=== PATIENT | male | born 1970 | race Hispanic/Latino ===

== ENCOUNTER 2018-03-12 09:27 | Emergency (ER) | payer BC, OTHER ==
--- NOTE | 2018-03-12 11:02 | ER ---
Nurse's Notes [facility] Name: Chip Maria Age: 47 yrs Sex: Male : 1970 Arrival Date: 03/12/2018 Time: 09:32 Bed 20 Private MD: Dick Garcia R Diagnosis: Cough;Acute upper respiratory infection, unspecified Presentation: 03/12 09:35 Presenting complaint: Patient states: has chills, also has cough with chest tightness, iw sometimes has phlegm. Transition of care: patient was not received from another setting of care. Onset of symptoms was March 09, 2018. Risk Assessment: Do you want to hurt yourself or someone else? Patient reports no desire to harm self or others. Initial Sepsis Screen: Does the patient meet any 2 criteria? No. Patient's initial sepsis screen is negative. Does the patient have a suspected source of infection? No. Patient's initial sepsis screen is negative. Care prior to arrival: None. 09:35 Method Of Arrival: Ambulatory iw 09:35 Acuity: GIOVANI 4 iw Historical: - Allergies: 09:36 No Known Allergies; iw - Home Meds: 09:36 None [Active]; iw - PMHx: 09:36 None; iw - PSHx: 09:36 None; iw - Social history:: Smoking status: . - Ebola Screening: : Patient negative for fever greater than or equal to 101.5 degrees Fahrenheit, and additional compatible Ebola Virus Disease symptoms Patient denies exposure to infectious person Patient denies travel to an Ebola-affected area in the 21 days before illness onset No symptoms or risks identified at this time. Screenin:40 Abuse screen: Denies threats or abuse. Denies injuries from another. Nutritional sv screening: No deficits noted. Tuberculosis screening: No symptoms or risk factors identified. Fall Risk None identified. Assessment: 09:40 General: Appears in no apparent distress. comfortable, Behavior is calm, cooperative, sv appropriate for age. Pain: Complains of pain in chest Pain currently is 2 out of 10 on a pain scale. Quality of pain is described as tightness with coughing. Neuro: Level of Consciousness is awake, alert, obeys commands, Oriented to person, place, time, situation, Moves all extremities. Full function Gait is steady, Speech is normal. Respiratory: Reports cough that is productive, intermittently Respiratory effort is even, unlabored, Respiratory pattern is regular, symmetrical. Derm: Skin is normal. 11:15 Reassessment: Patient appears in no apparent distress at this time. No changes from sv previously documented assessment. Patient and/or family updated on plan of care and expected duration. Pain level reassessed. Patient is alert, oriented x 3, equal unlabored respirations, skin warm/dry/pink. Vital Signs: 09:36 BP 112 / 95; Pulse 70; Resp 16; Temp 97.4; Pulse Ox 98% on R/A; iw ED Course: 09:32 Patient arrived in ED. mr 09:32 Dick aGrcia MD is Private Physician. mr 09:36 Triage completed. iw 09:37 Arm band placed on. iw 09:40 Patient has correct armband on for positive identification. Bed in low position. Call sv light in reach. Door closed. Head of bed elevated. 09:59 Marisela Rojas RN is Primary Nurse. sv 10:05 Bakari Lucero PA is PHCP. jr8 10:05 Alfredo Armstrong MD is Attending Physician. jr8 10:21 EKG done, by dietary tech. reviewed by Bakari CARDOZO. at1 10:41 X-ray completed. Portable x-ray completed in exam room. Patient tolerated procedure ls3 well. 10:43 Awaiting radiology results. sv 10:44 XRAY Chest (1 view) In Process Unspecified. EDMS 11:01 Dick Garcia MD is Referral Physician. jr8 11:15 No provider procedures requiring assistance completed. Patient did not have IV access sv during this emergency room visit. Administered Medications: No medications were administered Outcome: 11:01 Discharge ordered by . jr8 11:15 Discharged to home ambulatory, with family. sv 11:15 Condition: stable 11:15 Discharge instructions given to patient, Instructed on discharge instructions, follow up and referral plans. medication usage, Demonstrated understanding of instructions, follow-up care, medications, Prescriptions given X 3. 11:15 Patient left the ED. sv Signatures: Dispatcher [employer] EDMT Marisela Rojas RN RN Khan, Mi kim Mihaela Garcia RN RN iw Bakari Lucero PA PA jr8 Hannah Dior, photo equipment technician EKG Tat1 Mika Cash ls3
--- NOTE | 2018-03-12 11:02 | EDPHYS ---
Physician Documentation [facility] Name: Chip Maria Age: 47 yrs Sex: Male : 1970 Arrival Date: 03/12/2018 Time: 09:32 Bed 20 Private MD: Dick Garcia R ED Physician Alfredo Armstrong HPI: 03/12 10:38 This 47 yrs old Male presents to ER via Ambulatory with complaints of Flu jr8 Symptoms. 10:38 Patient presents with complaints of chest congestion, cough, chest pain, body aches, jr8 chills, fevers, n/v/d, sore throat, and rhinorrhea for the past three days. Severity of symptoms: At their worst the symptoms were mild in the emergency department the symptoms are unchanged. It is unknown whether or not the patient has had similar symptoms in the past. The patient has not recently seen a physician. Historical: - Allergies: 09:36 No Known Allergies; iw - Home Meds: 09:36 None [Active]; iw - PMHx: 09:36 None; iw - PSHx: 09:36 None; iw - Social history:: Smoking status: . - Ebola Screening: : Patient negative for fever greater than or equal to 101.5 degrees Fahrenheit, and additional compatible Ebola Virus Disease symptoms Patient denies exposure to infectious person Patient denies travel to an Ebola-affected area in the 21 days before illness onset No symptoms or risks identified at this time. ROS: 10:38 Eyes: Negative for injury, pain, redness, and discharge, Neck: Negative for injury, jr8 pain, and swelling, Back: Negative for injury and pain, MS/Extremity: Negative for injury and deformity, Skin: Negative for injury, rash, and discoloration, Neuro: Negative for headache, weakness, numbness, tingling, and seizure. 10:38 Constitutional: Positive for body aches, chills, fever. 10:38 ENT: Positive for rhinorrhea, sinus congestion, sore throat. 10:38 Cardiovascular: Positive for chest pain, with cough, Negative for edema, orthopnea, palpitations, paroxysmal nocturnal dyspnea. 10:38 Respiratory: Positive for cough, with clear sputum, Negative for dyspnea on exertion, shortness of breath, wheezing. 10:38 Abdomen/GI: Positive for nausea, vomiting, and diarrhea. Exam: 10:38 Eyes: Pupils equal round and reactive to light, extra-ocular motions intact. Lids and jr8 lashes normal. Conjunctiva and sclera are non-icteric and not injected. Cornea within normal limits. Periorbital areas with no swelling, redness, or edema. ENT: Nares patent. No nasal discharge, no septal abnormalities noted. Mild enlargment to turbinates bilaterally. Tympanic membranes are normal and external auditory canals are clear. Oropharynx with no redness, swelling, or masses, exudates, or evidence of obstruction, uvula midline. Mucous membranes moist. Neck: Trachea midline, no thyromegaly or masses palpated, and no cervical lymphadenopathy. Supple, full range of motion without nuchal rigidity, or vertebral point tenderness. No Meningismus. Cardiovascular: Regular rate and rhythm with a normal S1 and S2. No gallops, murmurs, or rubs. Normal PMI, no JVD. No pulse deficits. Respiratory: Lungs have equal breath sounds bilaterally, clear to auscultation and percussion. No rales, rhonchi or wheezes noted. No increased work of breathing, no retractions or nasal flaring. Abdomen/GI: Soft, non-tender, with normal bowel sounds. No distension or tympany. No guarding or rebound. No evidence of tenderness throughout. Back: No spinal tenderness. No costovertebral tenderness. Full range of motion. Skin: Warm, dry with normal turgor. Normal color with no rashes, no lesions, and no evidence of cellulitis. MS/ Extremity: Pulses equal, no cyanosis. Neurovascular intact. Full, normal range of motion. Neuro: Awake and alert, GCS 15, oriented to person, place, time, and situation. Cranial nerves II-XII grossly intact. Motor strength 5/5 in all extremities. Sensory grossly intact. Cerebellar exam normal. Normal gait. 10:40 ECG was reviewed by the Attending Physician. jr8 Vital Signs: 09:36 BP 112 / 95; Pulse 70; Resp 16; Temp 97.4; Pulse Ox 98% on R/A; iw MDM: 10:05 Patient medically screened. jr8 10:38 Data reviewed: vital signs, nurses notes, EKG, radiologic studies, plain films. Data jr8 interpreted: Pulse oximetry: on room air is 98 %. Interpretation: normal. Counseling: I had a detailed discussion with the patient and/or guardian regarding: the historical points, exam findings, and any diagnostic results supporting the discharge/admit diagnosis, radiology results, the need for outpatient follow up, a family practitioner, to return to the emergency department if symptoms worsen or persist or if there are any questions or concerns that arise at home. 03/12 10:13 Order name: XRAY Chest (1 view) jr8 03/12 10:13 Order name: EKG; Complete Time: jr8 03/12 10:13 Order name: EKG - Nurse/Tech; Complete Time: : jr8 EC:40 Rate is 69 beats/min. Rhythm is regular, Normal Sinus Rhythm. QRS [place] is Normal. [place] jr8 interval is normal at 164 msec. QRS interval is normal at 96 msec. QT interval is normal at 407 msec. No Q waves. T waves are Normal. No ST changes noted. Clinical impression: Normal ECG. Interpreted by me. Reviewed by me. Administered Medications: No medications were administered Disposition: 18:50 Co-signature as Attending Physician, Alfredo Armstrong MD I agree with the assessment and kdr plan of care. Disposition: 03/12/18 11:01 Discharged to Home. Impression: Cough, Acute upper respiratory infection, unspecified. - Condition is Stable. - Discharge Instructions: Upper Respiratory Infection, Adult, Cough, Adult. - Prescriptions for Prednisone 20 mg Oral Tablet - take 1 tablet by ORAL route once daily for 5 days; 5 tablet. Tessalon Perles 100 mg Oral Capsule - take 1 capsule by ORAL route every 8 hours As needed; 15 capsule. Guaifenesin AC 10- 100 mg/5 mL Oral Liquid - take 10 milliliter by ORAL route every 4 hours As needed; 240 milliliter. - Medication Reconciliation Form, Thank You Letter, Antibiotic Education, Prescription Opioid Use form. - Follow up: Dick Garcia MD; When: 5 - 6 days; Reason: Recheck today's complaints, Continuance of care, Re-evaluation by your physician. - Problem is new. - Symptoms have improved. Signatures: Dispatcher [employer] EDMS Marisela Rojas RN RN sv Rittger, Kevin, MD MD [facility] Mihaela Garcia RN RN iw Roszak, Josh, PA PA jr8 Corrections: (The following items were deleted from the chart) 11:15 11:01 03/12/2018 11:01 Discharged to Home. Impression: Cough; Acute upper respiratory sv infection, unspecified. Condition is Stable. Forms are Medication Reconciliation Form, Thank You Letter, Antibiotic Education, Prescription Opioid Use. Follow up: Dick Garcia; When: 5 - 6 days; Reason: Recheck today's complaints, Continuance of care, Re-evaluation by your physician. Problem is new. Symptoms have improved. jr8
--- NOTE | 2018-03-12 11:17 | RAD REPORT ---
EXAM DESCRIPTION: RAD - Chest Single View - 03/12/2018 10:43 am CLINICAL HISTORY: Cough, chest tightness COMPARISON: August 15, 2008 TECHNIQUE: AP portable chest image was obtained 1035 hours . FINDINGS: Lung volumes are low. No focal lung parenchymal process. Heart and vasculature are normal. No measurable pleural effusion and no pneumothorax. No acute bony abnormality seen. No acute aortic findings suspected. IMPRESSION: No acute cardiopulmonary process. No suspicious interval change.
--- NOTE | 2018-03-12 14:35 | EKG ---
Test Date: 2018-03-12 Test Time: 10:17:32 Oil Rig Driller: CHEIKH MEASUREMENT RESULTS: Intervals: Rate: 69 NV: 164 QRSD: 96 QT: 380 QTc: 407 Jbphh: P: 35 NV: 164 QRS: 18 T: 53 INTERPRETIVE STATEMENTS: Normal sinus rhythm Normal ECG Compared to ECG 08/15/2008 15:07:13 No significant changes Electronically Signed On 03-12-18 14:33:58 MEDIA ANALYST by Kaiden Grossman
== END 2018-03-12 11:15 | disposition home or self-care (01) ==
LOC: ER 09:27
DX: J06.9 Acute upper respiratory infection, unspecified (principal)
CPT/HCPCS: 71045; 93005; 99283

== ENCOUNTER 2018-07-27 14:43 | Emergency (ER) | payer BC, OTHER ==
[2018-07-27] MEDS ORDERED: KETOROLAC 30 MG/ML INJ ONE (16:35)
[2018-07-27] MEDS ORDERED: CYCLOBENZAPRINE 10 MG TAB ONE (16:35)
--- NOTE | 2018-07-27 16:54 | EDPHYS ---
Physician Documentation [facility] Name: Chip Maria Age: 48 yrs Sex: Male : 1970 Arrival Date: 07/27/2018 Time: 14:46 Bed 10 Private MD: Dick Garcia R ED Physician Jose Flores HPI: 07/27 16:03 This 48 yrs old Male presents to ER via Ambulatory with complaints of Back pm1 Pain. 16:03 The patient presents with pain that is acute. The symptoms are located in the left low pm1 back. Onset: The symptoms/episode began/occurred 2 day(s) ago. The pain does not radiate. Associated signs and symptoms: Pertinent negatives: abdominal pain, chest pain, dysuria, fever, headache, hematuria, numbness, tingling, urinary retention. The problem was sustained exercising. Patient was walking on the treadmill 2 days ago and started getting pain to left lower back. Modifying factors: The patient symptoms are alleviated by remaining still, rest, the patient symptoms are aggravated by bending, twisting and bending back. Severity of symptoms: in the emergency department the symptoms are unchanged. The patient has not experienced similar symptoms in the past. The patient has not recently seen a physician, the patient's primary care provider is Dr. Garcia. Historical: - Allergies: 14:54 No Known Allergies; ss - PMHx: 14:54 Diabetes - NIDDM; ss - PSHx: 14:54 None; ss - Immunization history:: Adult Immunizations up to date. - Social history:: Smoking status: Patient/guardian denies using tobacco. - Ebola Screening: : Patient denies exposure to infectious person Patient denies travel to an Ebola-affected area in the 21 days before illness onset. ROS: 16:03 Constitutional: Negative for fever, chills, and weight loss, Eyes: Negative for injury, pm1 pain, redness, and discharge, ENT: Negative for injury, pain, and discharge, Neck: Negative for injury, pain, and swelling, Cardiovascular: Negative for chest pain, palpitations, and edema, Respiratory: Negative for shortness of breath, cough, wheezing, and pleuritic chest pain, Abdomen/GI: Negative for abdominal pain, nausea, vomiting, diarrhea, and constipation. 16:03 : Negative for injury, bleeding, discharge, and swelling, MS/Extremity: Negative for injury and deformity, Skin: Negative for injury, rash, and discoloration, Neuro: Negative for headache, weakness, numbness, tingling, and seizure. 16:03 Back: Positive for pain with movement, of the left low back, Negative for radiated pain. Exam: 16:03 Constitutional: This is a well developed, well nourished patient who is awake, alert, pm1 and in no acute distress. Head/Face: Normocephalic, atraumatic. Eyes: Pupils equal round and reactive to light, extra-ocular motions intact. Lids and lashes normal. Conjunctiva and sclera are non-icteric and not injected. Cornea within normal limits. Periorbital areas with no swelling, redness, or edema. ENT: Nares patent. No nasal discharge, no septal abnormalities noted. Tympanic membranes are normal and external auditory canals are clear. Oropharynx with no redness, swelling, or masses, exudates, or evidence of obstruction, uvula midline. Mucous membranes moist. Neck: Trachea midline, no thyromegaly or masses palpated, and no cervical lymphadenopathy. Supple, full range of motion without nuchal rigidity, or vertebral point tenderness. No Meningismus. Chest/axilla: Normal chest wall appearance and motion. Nontender with no deformity. No lesions are appreciated. Cardiovascular: Regular rate and rhythm with a normal S1 and S2. No gallops, murmurs, or rubs. Normal PMI, no JVD. No pulse deficits. Respiratory: Lungs have equal breath sounds bilaterally, clear to auscultation and percussion. No rales, rhonchi or wheezes noted. No increased work of breathing, no retractions or nasal flaring. Abdomen/GI: Soft, non-tender, with normal bowel sounds. No distension or tympany. No guarding or rebound. No evidence of tenderness throughout. 16:03 Skin: Warm, dry with normal turgor. Normal color with no rashes, no lesions, and no evidence of cellulitis. MS/ Extremity: Pulses equal, no cyanosis. Neurovascular intact. Full, normal range of motion. 16:03 Back: vertebral tenderness, is not appreciated, muscle spasm, is appreciated in the left low back. 16:03 Neuro: Orientation: is normal, Motor: is normal, moves all fours, Sensation: is normal, no obvious gross deficits, Gait: is steady, at a normal pace, without difficulty. Vital Signs: 14:54 BP 132 / 85; Pulse 76; Resp 18; Temp 97.3(TE); Pulse Ox 97% on R/A; Weight 89.81 kg; ss Pain 04/23; MDM: 15:51 Patient medically screened. pm1 16:45 ED course: Negative for blood in urine. CT stone protocol not indicated. Patient's pain pm1 improved to 04/23. 17:02 Data reviewed: vital signs. Data interpreted: Pulse oximetry: on room air is 97 %. pm1 Interpretation: normal. 07/27 16:47 Order name: Urine Dipstick--Ancillary (enter results) bd 07/27 16:03 Order name: Urine Dipstick-Ancillary (obtain specimen); Complete Time: 16:39 pm1 Administered Medications: 16:39 Drug: TORadol 60 mg Route: IM; Site: left gluteus; aj 17:22 Follow up: Response: No adverse reaction aj 16:39 Drug: Flexeril 10 mg Route: PO; aj1 17:22 Follow up: Response: No adverse reaction aj Disposition: 07/28 10:27 Co-signature as Attending Physician, Jose Flores MD. Disposition: 07/27/18 16:53 Discharged to Home. Impression: Low back pain, Strain of muscle, fascia and tendon of lower back. - Condition is Stable. - Discharge Instructions: Back Pain, Adult, Muscle Strain, Musculoskeletal Pain, Back Injury Prevention, [id number]. - Prescriptions for Cyclobenzaprine 10 mg Oral Tablet - take 1 tablet by ORAL route every 8 hours As needed; 30 tablet. Diclofenac Sodium 75 mg Oral Tablet Sustained Release - take 1 tablet by ORAL route 2 times per day; 30 tablet. - Medication Reconciliation Form, Thank You Letter, Antibiotic Education, Prescription Opioid Use form. - Follow up: Emergency Department; When: As needed; Reason: Worsening of condition. Follow up: Private Physician; When: 2 - 3 days; Reason: Recheck today's complaints, Continuance of care, Re-evaluation by your physician. - Problem is new. - Symptoms have improved. Signatures: Dispatcher [employer] EDFL Lauryn Lord RN RN aj1 Karrie Arrington RN RN ss Travis Bailey NP DOCTOR ASSISTANT pm1 Jose Flores MD MD gs Corrections: (The following items were deleted from the chart) 07/27 17:23 16:53 07/27/2018 16:53 Discharged to Home. Impression: Low back pain; Strain of muscle, aj1 fascia and tendon of lower back. Condition is Stable. Forms are Medication Reconciliation Form, Thank You Letter, Antibiotic Education, Prescription Opioid Use. Follow up: Emergency Department; When: As needed; Reason: Worsening of condition. Follow up: Private Physician; When: 2 - 3 days; Reason: Recheck today's complaints, Continuance of care, Re-evaluation by your physician. Problem is new. Symptoms have improved. pm1
--- NOTE | 2018-07-27 16:54 | ER ---
Nurse's Notes [facility] Name: Chip Maria Age: 48 yrs Sex: Male : 1970 Arrival Date: 07/27/2018 Time: 14:46 Bed 10 Private MD: Dick Garcia R Diagnosis: Low back pain;Strain of muscle, fascia and tendon of lower back Presentation: 07/27 14:52 Presenting complaint: Patient states: L low back pain that began 2 days ago. Denies ss injury. Pt reports he was exercising when it became aggravated. Pain is aggravated by increased movement/ repositioning. Transition of care: patient was not received from another setting of care. Onset of symptoms was July 25, 2018. Risk Assessment: Do you want to hurt yourself or someone else? Patient reports no desire to harm self or others. Initial Sepsis Screen: Does the patient meet any 2 criteria? No. Patient's initial sepsis screen is negative. Does the patient have a suspected source of infection? No. Patient's initial sepsis screen is negative. Care prior to arrival: None. 14:52 Method Of Arrival: Ambulatory ss 14:52 Acuity: GIOVANI 4 ss Historical: - Allergies: 14:54 No Known Allergies; ss - PMHx: 14:54 Diabetes - NIDDM; ss - PSHx: 14:54 None; ss - Immunization history:: Adult Immunizations up to date. - Social history:: Smoking status: Patient/guardian denies using tobacco. - Ebola Screening: : Patient denies exposure to infectious person Patient denies travel to an Ebola-affected area in the 21 days before illness onset. Screenin:48 Abuse screen: Denies threats or abuse. Denies injuries from another. Nutritional aj1 screening: No deficits noted. Tuberculosis screening: No symptoms or risk factors identified. 17:21 Fall Risk None identified. aj1 Assessment: 15:47 General: Appears in no apparent distress. comfortable, Behavior is calm, cooperative, aj1 appropriate for age. Pain: Complains of pain in left low back Pain currently is 1 out of 10 on a pain scale. Aggravated by repositioning. Neuro: No deficits noted. Level of Consciousness is awake, alert, obeys commands, Oriented to person, place, time, situation, Moves all extremities. Full function Gait is steady. Cardiovascular: Patient's skin is warm and dry. Respiratory: Airway is patent Respiratory effort is even, unlabored, Respiratory pattern is regular, symmetrical. GI: No signs and/or symptoms were reported involving the gastrointestinal system. : No signs and/or symptoms were reported regarding the genitourinary system. EENT: No signs and/or symptoms were reported regarding the EENT system. Derm: No signs and/or symptoms reported regarding the dermatologic system. Skin is pink, warm \T\ dry. normal. Musculoskeletal: Circulation, motion, and sensation intact. Range of motion: intact in all extremities. 16:48 Reassessment: Patient appears in no apparent distress at this time. No changes from aj1 previously documented assessment. Patient and/or family updated on plan of care and expected duration. Pain level reassessed. Patient is alert, oriented x 3, equal unlabored respirations, skin warm/dry/pink. 17:21 Reassessment: Patient appears in no apparent distress at this time. No changes from aj1 previously documented assessment. Patient and/or family updated on plan of care and expected duration. Pain level reassessed. Patient is alert, oriented x 3, equal unlabored respirations, skin warm/dry/pink. Vital Signs: 14:54 BP 132 / 85; Pulse 76; Resp 18; Temp 97.3(TE); Pulse Ox 97% on R/A; Weight 89.81 kg; ss Pain 1/10; ED Course: 14:46 Patient arrived in ED. dl4 14:46 Dick Garcia MD is Private Physician. dl4 14:54 Triage completed. ss 14:54 Arm band placed on left wrist. ss 15:36 Travis Bailey NP is PHCP. pm1 15:36 Jose Flores MD is Attending Physician. pm1 15:46 Lauryn Lord RN is Primary Nurse. aj1 16:48 Patient has correct armband on for positive identification. Bed in low position. Call aj1 light in reach. Side rails up X 1. 16:48 No provider procedures requiring assistance completed. aj1 17:21 Patient did not have IV access during this emergency room visit. aj1 Administered Medications: 16:39 Drug: TORadol 60 mg Route: IM; Site: left gluteus; aj1 17:22 Follow up: Response: No adverse reaction aj1 16:39 Drug: Flexeril 10 mg Route: PO; aj1 17:22 Follow up: Response: No adverse reaction aj1 Outcome: 16:53 Discharge ordered by . pm1 17:21 Discharged to home ambulatory. aj1 17:21 Condition: good 17:21 Discharge instructions given to patient, family, Instructed on discharge instructions, follow up and referral plans. medication usage, Demonstrated understanding of instructions, follow-up care, medications, Prescriptions given X 2. 17:23 Patient left the ED. aj1 Signatures: Lauryn Lord RN RN aj1 Karrie Arrington RN RN Travis Moss, SALAD CHEF SALAD CHEF pm1 Zan Reveles dl4
[2018-07-27 20:12] LABS: Urine Blood NEGATIVE (NEG); Urine Glucose NEGATIVE (NEG); Urine Specific Gravity 1.025 (1.005-1.030)
[2018-07-27 20:13] LABS: Urine Protein NEGATIVE (NEG)
== END 2018-07-27 17:23 | disposition home or self-care (01) ==
LOC: ER 14:43
DX: S39.012A Strain of muscle, fascia and tendon of lower back, initial encounter (principal); X58.XXXA Exposure to other specified factors, initial encounter
CPT/HCPCS: 81003; 96372; 99283

== ENCOUNTER 2018-12-11 20:01 | Emergency (ER) | payer BC, OTHER ==
[2018-12-11] MEDS ORDERED: ASPIRIN 81 MG CHEWABLE TABLET ONE (21:06)
[2018-12-11] MEDS ORDERED: NA CHLORIDE 0.9% 1,000 ML ONE (21:07)
[2018-12-11] MEDS ORDERED: MORPHINE 2 MG/ML SYR ONE (21:07)
[2018-12-11 21:10] LABS: Absolute Lymphocytes (CBC) 2.2 K/uL (0.7-4.9); Basophils % 1.1 % (0-1.3); Hematocrit 41.8 % (39.6-49.0); Lymphocytes % 36.4 % (15.3-44.8); MPV 9.8 fL (7.6-11.3); RBC Red Blood Cell Count 4.66 M/uL (4.33-5.43)
[2018-12-11 21:17] LABS: Protime INR 1.05
[2018-12-11 21:30] LABS: ALT/SGPT 26 U/L (12-78); AST/SGOT 16 U/L (15-37); Albumin 3.8 g/dL (3.4-5.0); Alkaline Phosphatase 112 U/L (45-117); BUN Blood Urea Nitrogen 12 mg/dL (7-18); Bicarbonate 27 mmol/L (21-32); Bilirubin Direct < 0.1 mg/dL (0-0.2); Bilirubin Total 0.2 mg/dL (0.2-1.0); Glucose Level 116 mg/dL (74-106); NT PRO-BNP 9 pg/mL (<125); Potassium 3.9 mmol/L (3.5-5.1); Protein, Total 7.6 g/dL (6.4-8.2); Sodium Level 141 mmol/L (136-145); Troponin (Emerg Dept Use Only) < 0.02 ng/mL (0.0-0.045)
[2018-12-11] MEDS ORDERED: KETOROLAC 30 MG/ML INJ ONE (21:59)
--- NOTE | 2018-12-11 22:53 | ER ---
Nurse's Notes [facility] Name: Chip Maria Age: 48 yrs Sex: Male : 1970 Arrival Date: 12/11/2018 Time: 20:04 Bed 26 Private MD: Diagnosis: Chest pain, unspecified Presentation: 12/11 20:22 Presenting complaint: Patient states: Chest pain since last night. Denies SOB, aj1 palpitations, nausea. Transition of care: patient was not received from another setting of care. Onset of symptoms was December 10, 2018. Risk Assessment: Do you want to hurt yourself or someone else? Patient reports no desire to harm self or others. Initial Sepsis Screen: Does the patient meet any 2 criteria? No. Patient's initial sepsis screen is negative. Does the patient have a suspected source of infection?. Care prior to arrival: None. 20:22 Method Of Arrival: Ambulatory aj1 20:22 Acuity: GIOVANI 3 aj1 Triage Assessment: 20:24 General: Appears in no apparent distress. comfortable, Behavior is calm, cooperative, aj1 appropriate for age. Pain: Complains of pain in mid-sternal area Pain radiates to anterior aspect of left upper chest and left arm Pain currently is 10 out of 10 on a pain scale. Pain: Quality of pain is described as sharp, Pain began 1 day ago. Neuro: Level of Consciousness is awake, alert, obeys commands. Cardiovascular: Patient's skin is warm and dry. Respiratory: Airway is patent Respiratory effort is even, unlabored, Respiratory pattern is regular, symmetrical, Denies shortness of breath. Historical: - Allergies: 20:24 No Known Allergies; aj1 - Home Meds: 20:24 None [Active]; aj1 - PMHx: 20:24 Diabetes - NIDDM; aj1 - Immunization history:: Flu vaccine is up to date. - Social history:: Smoking status: Patient/guardian denies using tobacco. - Ebola Screening: : Patient denies travel to an Ebola-affected area in the 21 days before illness onset. Screenin:16 Abuse screen: Denies threats or abuse. Denies injuries from another. Nutritional ca1 screening: No deficits noted. Tuberculosis screening: No symptoms or risk factors identified. Fall Risk IV access (20 points). Assessment: 21:16 General: Appears in no apparent distress. comfortable, Behavior is calm, cooperative, ca1 appropriate for age. Pain: Complains of pain in anterior aspect of left upper chest and chest and mid-sternal area Pain radiates to left arm Pain currently is 10 out of 10 on a pain scale. Quality of pain is described as sharp, Pain began 1 day ago. Is intermittent. Neuro: Level of Consciousness is awake, alert, obeys commands, Oriented to person, place, time, situation, Appropriate for age. Cardiovascular: Heart tones S1 S2 present Capillary refill < 3 seconds Patient's skin is warm and dry. Rhythm is sinus rhythm. Respiratory: Airway is patent Respiratory effort is even, unlabored, Respiratory pattern is regular, symmetrical, Breath sounds are clear bilaterally. GI: Abdomen is round non-distended, Bowel sounds present X 4 quads. Abd is soft and non tender X 4 quads. : No deficits noted. No signs and/or symptoms were reported regarding the genitourinary system. EENT: No deficits noted. No signs and/or symptoms were reported regarding the EENT system. Derm: Skin is intact, is healthy with good turgor, Skin is pink, warm \T\ dry. Musculoskeletal: Circulation, motion, and sensation intact. Capillary refill < 3 seconds, Range of motion: intact in all extremities. 22:02 Reassessment: Patient appears in no apparent distress at this time. Patient and/or ca1 family updated on plan of care and expected duration. Pain level reassessed. Patient is alert, oriented x 3, equal unlabored respirations, skin warm/dry/pink. 22:58 Reassessment: Patient appears in no apparent distress at this time. Patient is alert, ca1 oriented x 3, equal unlabored respirations, skin warm/dry/pink. Patient states feeling better. Vital Signs: 20:24 BP 110 / 76; Pulse 79; Resp 18; Temp 98.2; Pulse Ox 98% on R/A; Weight 80.74 kg (R); aj1 Height 5 ft. 5 in. (165.10 cm) (R); Pain 10/10; 21:50 BP 120 / 85; Pulse 64; Resp 16 S; Pulse Ox 95% on R/A; ca1 22:58 BP 119 / 79; Pulse 59; Resp 17; Pulse Ox 97% on R/A; ca1 20:24 Body Mass Index 29.62 (80.74 kg, 165.10 cm) aj1 Vitals: 22:58 Cardiac Rhythm Assessment Sinus rhythm. ca1 ED Course: 20:04 Patient arrived in ED. ag3 20:23 Triage completed. aj1 20:24 Arm band placed on Patient placed in an exam room. aj1 20:31 Frannie Vides, RN is Primary Nurse. ca1 20:31 Bakari Lucero PA is PHCP. jr8 20:31 Mikey Cervantes MD is Attending Physician. jr8 20:36 PHCP role handed off by Bakari Lucero PA cp 20:36 Mau Gonzalez PA is PHCP. cp 20:55 Inserted saline lock: 20 gauge in left antecubital area, using aseptic technique. Blood mt collected. 21:03 XRAY Chest (1 view) In Process Unspecified. EDMS 21:16 Patient has correct armband on for positive identification. Placed in gown. Bed in low ca1 position. Call light in reach. Side rails up X 1. teletypesetter monitor on. Pulse ox on. NIBP on. Warm blanket given. Pillow given. 21:16 No provider procedures requiring assistance completed. Patient maintains SpO2 ca1 saturation greater than 95% on room air. 22:39 PHCP role handed off by Mau Gonzalez PA jr8 22:39 Bakari Lucero PA is PHCP. jr8 22:51 Oscar Harris MD is Referral Physician. jr8 22:59 IV discontinued, intact, bleeding controlled, No redness/swelling at site. Pressure ca1 dressing applied. Administered Medications: 21:07 Drug: Aspirin Chewable Tablet 324 mg Route: PO; ca1 22:01 Follow up: Response: No adverse reaction ca1 21:07 Drug: NS 0.9% 1000 ml Route: IV; Rate: 1 bolus; Site: left antecubital; ca1 22:01 Follow up: IV Status: Completed infusion; IV Intake: 1000ml ca1 21:10 Drug: morphine 2 mg {Note: RASS - 0.} Route: IVP; Site: left antecubital; ca1 22:00 Follow up: Response: No adverse reaction; Pain is decreased ca1 22:01 Follow up: Response: RASS: Alert and Calm (0) ca1 22:00 Drug: TORadol 30 mg Route: IVP; Site: left antecubital; ca1 22:51 Follow up: Response: No adverse reaction; Pain is decreased ca1 22:51 Not Given (Patient Refused): fentaNYL (PF) 25 mcg IVP once; RASS on ADMIN: Combtv4, ca1 Very Agttd3, Agttd2, Rstlss1, AlertClm0, Drwsy-1, Lt Sdtn-2, Mod Sdtn-3, Dp Sdtn-4, UnArsble-5 Intake: 22:01 IV: 1000ml; Total: 1000ml. ca1 Outcome: 22:51 Discharge ordered by MD. bragg 22:59 Discharged to home ambulatory, with family. ca1 22:59 Condition: stable 22:59 Discharge instructions given to patient, family, Instructed on discharge instructions, follow up and referral plans. Demonstrated understanding of instructions, follow-up care. 23:00 Patient left the ED. ca1 Signatures: Dispatcher [employer] EDMS Lauryn Lord RN RN aj1 Bakari Lucero PA PA jr8 Mau Gonzalez PA PA cp [facility] Laney Cabrera 3 Frannie Vides RN RN ca1 Corrections: (The following items were deleted from the chart) 22:58 22:58 Reassessment: Patient appears in no apparent distress at this time. Patient is ca1 alert, oriented x 3, equal unlabored respirations, skin warm/dry/pink. ca1
--- NOTE | 2018-12-11 22:54 | EDPHYS ---
Physician Documentation [facility] Name: Chip Maria Age: 48 yrs Sex: Male : 1970 Arrival Date: 12/11/2018 Time: 20:04 Bed 26 Private MD: ED Physician Mikey Cervantes HPI: 12/11 20:55 This 48 yrs old Male presents to ER via Ambulatory with complaints of Chest cp Pain. 20:55 The patient or guardian reports chest pain that is located primarily in the anterior cp chest wall, left. 20:55 Onset: yesterday. The pain radiates to the left arm, Associated signs and symptoms: cp Pertinent negatives: abdominal pain, cough, diaphoresis, dizziness, lower extremity pain, lower extremity swelling, syncope, vomiting. The chest pain is described as sharp. Duration: The patient or guardian reports a single episode, that is still ongoing, and unchanged. Historical: - Allergies: 20:24 No Known Allergies; aj1 - Home Meds: 20:24 None [Active]; aj1 - PMHx: 20:24 Diabetes - NIDDM; aj1 - Immunization history:: Flu vaccine is up to date. - Social history:: Smoking status: Patient/guardian denies using tobacco. - Ebola Screening: : Patient denies travel to an Ebola-affected area in the 21 days before illness onset. ROS: 21:00 Constitutional: Negative for body aches, chills, fever, poor PO intake. cp 21:00 Eyes: Negative for injury, pain, redness, and discharge. cp 21:00 ENT: Negative for drainage from ear(s), ear pain, sore throat, difficulty swallowing, difficulty handling secretions. 21:00 Cardiovascular: Positive for chest pain, Negative for edema, palpitations. 21:00 Respiratory: Negative for cough, shortness of breath, wheezing. 21:00 Abdomen/GI: Negative for abdominal pain, vomiting, diarrhea, constipation, black/tarry stool, rectal bleeding. 21:00 Back: Positive for radiated pain. 21:00 Skin: Negative for rash. 21:00 Neuro: Negative for altered mental status, headache, weakness. 21:00 All other systems are negative. Exam: 20:45 ECG was reviewed by the Attending Physician. cp 21:05 Constitutional: The patient appears in no acute distress, alert, awake, cp non-diaphoretic, non-toxic, well developed, well nourished. 21:05 Head/Face: Normocephalic, atraumatic. cp 21:05 Eyes: Periorbital structures: appear normal, Conjunctiva: normal, no exudate, no injection, Sclera: no appreciated abnormality, Lids and lashes: appear normal, bilaterally. 21:05 ENT: External ear(s): are unremarkable, Nose: is normal, Mouth: is normal, Posterior pharynx: is normal, airway is patent, no erythema, no exudate. 21:05 Neck: ROM/movement: is normal, is supple, without pain, no range of motions limitations, no nuchal rigidity. 21:05 Chest/axilla: Inspection: normal, Palpation: crepitus, is not appreciated, tenderness, of the anterior aspect of left upper chest and left breast. 21:05 Cardiovascular: Rate: normal, Rhythm: regular, Pulses: Pulses are 2+ in right radial artery and left radial artery. Heart sounds: murmur, not appreciated, rub, not appreciated, gallop, not appreciated, Edema: is not appreciated, JVD: is not appreciated. 21:05 Respiratory: the patient does not display signs of respiratory distress, Respirations: normal, no use of accessory muscles, no retractions, no splinting, no tachypnea, labored breathing, is not present, Breath sounds: are clear throughout, no decreased breath sounds, no stridor, no wheezing. 21:05 Abdomen/GI: Inspection: abdomen appears normal, Bowel sounds: active, all quadrants, Palpation: abdomen is soft and non-tender, in all quadrants, rebound tenderness, is not appreciated, voluntary guarding, is not appreciated, involuntary guarding, is not appreciated. Vital Signs: 20:24 BP 110 / 76; Pulse 79; Resp 18; Temp 98.2; Pulse Ox 98% on R/A; Weight 80.74 kg (R); aj1 Height 5 ft. 5 in. (165.10 cm) (R); Pain 10/10; 21:50 BP 120 / 85; Pulse 64; Resp 16 S; Pulse Ox 95% on R/A; ca1 22:58 BP 119 / 79; Pulse 59; Resp 17; Pulse Ox 97% on R/A; ca1 20:24 Body Mass Index 29.62 (80.74 kg, 165.10 cm) aj1 MDM: 20:35 Patient medically screened. jr8 22:50 The patient was given aspirin in the Emergency Department. Data reviewed: vital signs, jr8 nurses notes, lab test result(s), EKG, radiologic studies, plain films. Data interpreted: Pulse oximetry: on room air is 95 %. Interpretation: normal. Counseling: I had a detailed discussion with the patient and/or guardian regarding: the historical points, exam findings, and any diagnostic results supporting the discharge/admit diagnosis, lab results, radiology results, the need for outpatient follow up, a family practitioner, to return to the emergency department if symptoms worsen or persist or if there are any questions or concerns that arise at home. ED course: Patient with no chest pain. Labs unremarkable. Will d/c patient home to f/u with and Cardiology . 12/11 20:37 Order name: Basic Metabolic Panel; Complete Time: 21:51 cp 0830 21:51 Interpretation: Normal except: GLUC 116; GFR 77. cp 12/11 20:37 Order name: CBC with Diff; Complete Time: 21:51 cp 12/11 20:37 Order name: LFT's; Complete Time: 21:51 cp 08/30 21:51 Interpretation: Normal except: GLOB 3.8; A/G 1.0. cp 12/11 20:37 Order name: Magnesium; Complete Time: 21:51 cp 12/11 20:37 Order name: NT PRO-BNP; Complete Time: 21:51 cp 12/11 20:37 Order name: PT-INR; Complete Time: 21:51 cp 12/11 20:37 Order name: Troponin (emerg Dept Use Only); Complete Time: 21:51 cp 12/11 20:37 Order name: XRAY Chest (1 view) cp 12/11 22:10 Order name: D-Dimer; Complete Time: 22:39 cp / 22:10 Order name: LAB Add On cp 12/11 20:37 Order name: EKG; Complete Time: 20:39 cp 12/11 20:37 Order name: Cardiac monitoring; Complete Time: 21:06 cp 12/11 20:37 Order name: EKG - Nurse/Tech; Complete Time: 20:50 cp 12/11 20:37 Order name: IV Saline Lock; Complete Time: 21:06 cp 12/11 20:37 Order name: Labs collected and sent; Complete Time: : cp 12/11 20:37 Order name: O2 Per Protocol; Complete Time: : cp 12/11 20:37 Order name: O2 Sat Monitoring; Complete Time: : cp EC:45 Rate is 80 beats/min. Rhythm is regular. FL interval is normal. QRS interval is normal. cp QT interval is normal. Interpreted by me. Reviewed by me. Administered Medications: 21: Drug: Aspirin Chewable Tablet 324 mg Route: PO; ca1 22: Follow up: Response: No adverse reaction ca1 : Drug: NS 0.9% 1000 ml Route: IV; Rate: 1 bolus; Site: left antecubital; ca1 : Follow up: IV Status: Completed infusion; IV Intake: 1000ml ca1 : Drug: morphine 2 mg {Note: RASS - 0.} Route: IVP; Site: left antecubital; ca1 22:00 Follow up: Response: No adverse reaction; Pain is decreased ca1 22: Follow up: Response: RASS: Alert and Calm (0) ca1 22:00 Drug: TORadol 30 mg Route: IVP; Site: left antecubital; ca1 22:51 Follow up: Response: No adverse reaction; Pain is decreased ca1 22:51 Not Given (Patient Refused): fentaNYL (PF) 25 mcg IVP once; RASS on ADMIN: Combtv4, ca1 Very Agttd3, Agttd2, Rstlss1, AlertClm0, Drwsy-1, Lt Sdtn-2, Mod Sdtn-3, Dp Sdtn-4, UnArsble-5 Disposition: 23:11 Co-signature as Attending Physician, Mikey Cervantes MD. rn Disposition: 12/11/18 22:51 Discharged to Home. Impression: Chest pain, unspecified. - Condition is Stable. - Discharge Instructions: Nonspecific Chest Pain. - Medication Reconciliation Form, Thank You Letter, Antibiotic Education, Prescription Opioid Use form. - Follow up: Oscar Harris MD; When: 2 - 3 days; Reason: Recheck today's complaints, Continuance of care, Re-evaluation by your physician. - Problem is new. - Symptoms have improved. Signatures: Dispatcher [employer] Lauryn Gonzalez RN RN aj1 Mikey Cervantes MD MD rn Roszak, Josh, PA PA jr8 Mau Gonzalez PA PA cp Acob, RADHA Kathleen RN ca1 Corrections: (The following items were deleted from the chart) :12/10 21:05 Constitutional: The patient appears in no acute distress, alert, awake, cp non-diaphoretic, non-toxic, well developed, well nourished, cp 12/11 21:12/10 21:05 Head/Face: Normocephalic, atraumatic. cp cp 12/11 21:12/10 21:05 Eyes: Periorbital structures: appear normal, Conjunctiva: normal, no cp exudate, no injection, Sclera: no appreciated abnormality, Lids and lashes: appear normal, bilaterally, cp 12/11 21:12/10 21:05 ENT: External ear(s): are unremarkable, Nose: is normal, Mouth: is normal, cp Posterior pharynx: is normal, airway is patent, no erythema, no exudate, cp 12/11 21:12/10 21:05 Neck: ROM/movement: is normal, is supple, without pain, no range of motions cp limitations, cp 12/11 21:12/10 21:05 Chest/axilla: Inspection: normal, Palpation: crepitus, is not appreciated, cp tenderness, of the anterior aspect of left upper chest and left breast, cp 12/11 21:12/10 21:05 Cardiovascular: Rate: normal, Rhythm: regular, Pulses: Pulses are 2+ in cp right radial artery and left radial artery. Edema: is not appreciated, JVD: is not appreciated, cp 12/11 21:12/10 21:05 Respiratory: the patient does not display signs of respiratory distress, cp Respirations: normal, no use of accessory muscles, no retractions, no splinting, no tachypnea, labored breathing, is not present, Breath sounds: are clear throughout, no decreased breath sounds, no stridor, no wheezing, cp 12/11 21:12/10 21:05 Abdomen/GI: Inspection: abdomen appears normal, Bowel sounds: active, all cp quadrants, Palpation: abdomen is soft and non-tender, in all quadrants, cp 12/11 21:12/10 21:05 Skin: no rash present. cp cp 12/11 23:00 22:51 12/11/2018 22:51 Discharged to Home. Impression: Chest pain, unspecified. ca1 Condition is Stable. Forms are Medication Reconciliation Form, Thank You Letter, Antibiotic Education, Prescription Opioid Use. Follow up: Oscar Harris; When: 2 - 3 days; Reason: Recheck today's complaints, Continuance of care, Re-evaluation by your physician. Problem is new. Symptoms have improved. jr8
--- NOTE | 2018-12-12 07:49 | RAD REPORT ---
EXAM DESCRIPTION: Abhinav Single View12/11/2018 9:04 pm CLINICAL HISTORY: Chest pain COMPARISON: 02/2018 FINDINGS: The lungs appear clear of acute infiltrate. The heart is normal size IMPRESSION: No acute abnormalities displayed
--- NOTE | 2018-12-13 08:10 | EKG ---
Test Date: 2018-12-11 Test Time: 20:30:46 [employer] Worker: ABBIE MEASUREMENT RESULTS: Intervals: Rate: 80 VA: 156 QRSD: 94 QT: 358 QTc: 412 Knott: P: 19 VA: 156 QRS: 8 T: 37 INTERPRETIVE STATEMENTS: Normal sinus rhythm Normal ECG Compared to ECG 03/12/2018 10:17:32 No significant changes Electronically Signed On 12-13-18 08:07:17 CDT by Kaiden Grossman
== END 2018-12-11 23:00 | disposition home or self-care (01) ==
LOC: ER 20:01
DX: R07.89 Other chest pain (principal)
CPT/HCPCS: 96361; 93005; 85025; 80048; 36415; 83735; 85610; 85379; 80076; 84484; 83880; 71045; 96375; 96374; 99285; J2270; J7030

== ENCOUNTER 2018-12-26 21:18 | Emergency (ER) | payer BC, OTHER ==
--- NOTE | 2018-12-26 22:52 | ER ---
Nurse's Notes [facility] Name: Chip Maria Age: 48 yrs Sex: Male : 1970 Arrival Date: 12/26/2018 Time: 21:31 Bed 13 Private MD: Diagnosis: Tendinitis, left arm Presentation: 12/26 22:19 Presenting complaint: Patient states: Reports he was working at [employer] a few ea months ago and thinks he may have over used that arm. Pt reports the pain has been going on for 2 months. Transition of care: patient was not received from another setting of care. Onset of symptoms was December 26, 2018. Risk Assessment: Do you want to hurt yourself or someone else? Patient reports no desire to harm self or others. Initial Sepsis Screen: Does the patient meet any 2 criteria? Yes Does the patient have a suspected source of infection? No. Patient's initial sepsis screen is negative. Care prior to arrival: None. 22:19 Method Of Arrival: Wheelchair ea 22:19 Acuity: GIOVANI 4 ea Triage Assessment: 22:25 General: Appears in no apparent distress. Behavior is calm, cooperative, appropriate ea for age. Pain: Complains of pain in left arm. Historical: - Allergies: 22:23 No Known Allergies; ea - Home Meds: 22:23 None [Active]; ea - PMHx: 22:23 Diabetes - NIDDM; ea - PSHx: 22:23 None; ea - Immunization history:: Adult Immunizations up to date. - Social history:: Smoking status: Patient/guardian denies using tobacco. - Ebola Screening: : No symptoms or risks identified at this time. - Family history:: not pertinent. - Hospitalizations: : No recent hospitalization is reported. Screenin:20 Abuse screen: Denies threats or abuse. Nutritional screening: No deficits noted. ea Tuberculosis screening: No symptoms or risk factors identified. Fall Risk None identified. Assessment: 22:25 General: Appears in no apparent distress. Behavior is calm, cooperative, appropriate ea for age. Pain: Complains of pain in left arm. Neuro: Level of Consciousness is awake, alert, obeys commands, Oriented to person, place, time, situation. Cardiovascular: Patient's skin is warm and dry. Respiratory: Airway is patent Respiratory effort is even, unlabored, Respiratory pattern is regular, symmetrical. Derm: Skin is pink, warm \T\ dry. Musculoskeletal: Circulation, motion, and sensation intact. 23:35 Reassessment: Patient appears in no apparent distress at this time. Patient and/or jb4 family updated on plan of care and expected duration. Pain level reassessed. Patient is alert, oriented x 3, equal unlabored respirations, skin warm/dry/pink. Pt verbalized understanding of d/c and follow up instructions. Vital Signs: 22:24 BP 111 / 72; Pulse 62; Resp 18; Temp 97.6; Pulse Ox 95% on R/A; Weight 63.05 kg; Height ea 5 ft. 5 in. (165.10 cm); Pain 7/10; 23:35 BP 122 / 84; Pulse 72; Resp 16; Pulse Ox 97% on R/A; jb4 22:24 Body Mass Index 23.13 (63.05 kg, 165.10 cm) ea ED Course: 21:31 Patient arrived in ED. ag3 22:20 Triage completed. ea 22:24 Arm band placed on right wrist. Patient placed in an exam room, on a stretcher, on ea pulse oximetry. 22:25 Patient has correct armband on for positive identification. Bed in low position. Call ea light in reach. Side rails up X2. 22:26 Mikey Cervantes MD is Attending Physician. rn 23:35 No provider procedures requiring assistance completed. Patient did not have IV access jb4 during this emergency room visit. Administered Medications: No medications were administered Outcome: 22:51 Discharge ordered by . rn 23:35 Discharged to home ambulatory, with family. jb4 23:35 Condition: stable 23:35 Discharge instructions given to patient, family, Instructed on discharge instructions, follow up and referral plans. Demonstrated understanding of instructions, follow-up care. 23:36 Patient left the ED. jb4 Signatures: Mikey Cervantes MD MD rn Bryson, James, RN RN jb4 Mary Doyle RN RN ea Gomez, Alice ag3
--- NOTE | 2018-12-26 22:53 | EDPHYS ---
Physician Documentation [facility] Name: Chip Maria Age: 48 yrs Sex: Male : 1970 Arrival Date: 12/26/2018 Time: 21:31 Bed 13 Private MD: ED Physician Mikey Cervantes HPI: 12/26 22:48 This 48 yrs old Male presents to ER via Wheelchair with complaints of LEFT ARM rn PAIN. 22:48 The patient or guardian complains of pain. The complaints affect the anterior aspect of rn left shoulder and dorsal aspect of left forearm. Onset: The symptoms/episode began/occurred 2 month(s) ago. Modifying factors: The symptoms are alleviated by remaining still, the symptoms are aggravated by lifting weight, bending arm. Severity of symptoms: At their worst the symptoms were mild, in the emergency department the symptoms are unchanged. The patient has experienced similar episodes in the past. Reports 2 months of left arm pain, forearm, and radiates up to left shoulder, no gross injury, no fever, no trauma. . Historical: - Allergies: 22:23 No Known Allergies; ea - Home Meds: 22:23 None [Active]; ea - PMHx: 22:23 Diabetes - NIDDM; ea - PSHx: 22:23 None; ea - Immunization history:: Adult Immunizations up to date. - Social history:: Smoking status: Patient/guardian denies using tobacco. - Ebola Screening: : No symptoms or risks identified at this time. - Family history:: not pertinent. - Hospitalizations: : No recent hospitalization is reported. ROS: 22:48 Constitutional: Negative for fever, chills, and weight loss, Eyes: Negative for injury, rn pain, redness, and discharge, Neck: Negative for injury, pain, and swelling, Cardiovascular: Negative for chest pain, palpitations, and edema, Respiratory: Negative for shortness of breath, cough, wheezing, and pleuritic chest pain, Abdomen/GI: Negative for abdominal pain, nausea, vomiting, diarrhea, and constipation, MS/Extremity: Negative for injury and deformity, Skin: Negative for injury, rash, and discoloration, Neuro: Negative for headache, weakness, numbness, tingling, and seizure. Exam: 22:48 Constitutional: This is a well developed, well nourished patient who is awake, alert, rn and in no acute distress. Neck: Trachea midline, no thyromegaly or masses palpated, and no cervical lymphadenopathy. Supple, full range of motion without nuchal rigidity, or vertebral point tenderness. No Meningismus. Skin: Warm, dry with normal turgor. Normal color with no rashes, no lesions, and no evidence of cellulitis. MS/ Extremity: Pulses equal, no cyanosis. Neurovascular intact. Full, normal range of motion. Equal circumference. + mild muscular tenderness at forearm, no swelling, no skin changes. Vital Signs: 22:24 BP 111 / 72; Pulse 62; Resp 18; Temp 97.6; Pulse Ox 95% on R/A; Weight 63.05 kg; Height ea 5 ft. 5 in. (165.10 cm); Pain 7/10; 23:35 BP 122 / 84; Pulse 72; Resp 16; Pulse Ox 97% on R/A; jb4 22:24 Body Mass Index 23.13 (63.05 kg, 165.10 cm) ea MDM: 22:26 Patient medically screened. rn 22:48 Differential diagnosis: tendonitis. Data reviewed: vital signs, nurses notes, and as a rn result, I will discharge patient. Counseling: I had a detailed discussion with the patient and/or guardian regarding: the historical points, exam findings, and any diagnostic results supporting the discharge/admit diagnosis, the need for outpatient follow up, to return to the emergency department if symptoms worsen or persist or if there are any questions or concerns that arise at home. Special discussion: I discussed with the patient/guardian in detail that at this point there is no indication for admission to the hospital. It is understood, however, that if the symptoms persist or worsen the patient needs to return immediately for re-evaluation. Based on the history and exam findings, there is no indication for further emergent testing or inpatient evaluation. I discussed with the patient/guardian the need to see the primary care provider for further evaluation of the symptoms. ED course: MOst consistent with tendinitis, no bony deformity, pain for 2 months, recommend OTC meds and rest. Patient also left handed and still working with hands through this pain.. Administered Medications: No medications were administered Disposition: 12/26/18 22:51 Discharged to Home. Impression: Tendinitis, left arm. - Condition is Stable. - Discharge Instructions: Tendinitis. - Medication Reconciliation Form, Thank You Letter, Antibiotic Education, Prescription Opioid Use form. - Follow up: Private Physician; When: As needed; Reason: Recheck today's complaints, Re-evaluation by your physician. - Problem is an ongoing problem. - Symptoms are unchanged. Signatures: Mikey Cervantes MD MD rn Bryson, James, RN RN jb4 Mary Doyle RN RN ea Corrections: (The following items were deleted from the chart) 23:36 22:51 12/26/2018 22:51 Discharged to Home. Impression: Tendinitis, left arm. Condition jb4 is Stable. Forms are Medication Reconciliation Form, Thank You Letter, Antibiotic Education, Prescription Opioid Use. Follow up: Private Physician; When: As needed; Reason: Recheck today's complaints, Re-evaluation by your physician. Problem is an ongoing problem. Symptoms are unchanged. rn
[2018-12-26 23:43] VITALS: TEMP 97.6
[2018-12-26 23:45] VITALS: BP 122/84; O2SAT 97
== END 2018-12-26 23:36 | disposition home or self-care (01) ==
LOC: ER 21:18
DX: M77.9 Enthesopathy, unspecified (principal); M77.8 Other enthesopathies, not elsewhere classified; E11.9 Type 2 diabetes mellitus without complications
CPT/HCPCS: 99283

== ENCOUNTER 2019-03-27 20:39 | Emergency (ER) | payer BC, OTHER ==
[2019-03-27] MEDS ORDERED: MEPERIDINE HCL 25 MG/0.5 ML ONE (21:02)
[2019-03-27] MEDS ORDERED: ONDANSETRON 4 MG/2 ML VIAL ONE (21:02)
[2019-03-27 21:17] LABS: Absolute Lymphocytes (CBC) 2.7 K/uL (0.7-4.9); Basophils % 0.9 % (0-1.3); Hematocrit 41.5 % (39.6-49.0); MPV 9.6 fL (7.6-11.3); RBC Red Blood Cell Count 4.63 M/uL (4.33-5.43)
[2019-03-27 21:52] LABS: ALT/SGPT 33 U/L (12-78); AST/SGOT 22 U/L (15-37); Albumin 3.9 g/dL (3.4-5.0); Alkaline Phosphatase 115 U/L (45-117); BUN Blood Urea Nitrogen 17 mg/dL (7-18); Bicarbonate 27 mmol/L (21-32); Bilirubin Direct < 0.1 mg/dL (0-0.2); Bilirubin Total 0.3 mg/dL (0.2-1.0); Glucose Level 122 mg/dL (74-106); Lipase 246 U/L (73-393); Protein, Total 7.8 g/dL (6.4-8.2); Sodium Level 141 mmol/L (136-145)
[2019-03-27 21:52] LABS: Urine Blood NEGATIVE (NEG); Urine Glucose NEGATIVE (NEG); Urine Protein NEGATIVE (NEG); Urine Specific Gravity >1.030 (1.005-1.030); Urine pH 6.5 (5.0-7.0)
[2019-03-27 21:55] LABS: Urine Bacteria <20 /HPF (NONE SEEN); Urine Culture Reflex Order REFLEXED; Urine Mucus 3+ /HPF (NONE SEEN); Urine RBC <5 /HPF (NONE SEEN)
--- NOTE | 2019-03-27 23:28 | EDPHYS ---
Physician Documentation [facility] Name: Chip Maria Age: 48 yrs Sex: Male : 1970 Arrival Date: 03/27/2019 Time: 20:40 Bed 14 Private MD: Dick Garcia R ED Physician Mikey Cervantes HPI: 03/27 20:53 This 48 yrs old Male presents to ER via Unassigned with complaints of Groin rn Pain, abd pain. 20:53 The patient presents with abdominal pain in the lower abdomen. Onset: The rn symptoms/episode began/occurred 2 week(s) ago. The symptoms do not radiate. Associated signs and symptoms: Pertinent positives: nausea, Pertinent negatives: anorexia, blood in stools, chest pain, constipation, diarrhea, dysuria, fever, shortness of breath, testicular pain, vomiting, vomiting blood. The symptoms are described as achy, sharp. Modifying factors: The symptoms are alleviated by nothing, the symptoms are aggravated by pressure. Severity of pain: At its worst the pain was mild in the emergency department the pain is unchanged. The patient has not experienced similar symptoms in the past. Reports 2 weeks lower abd and suprapubic pain, assoc with nausea, no fever/vomiting/diarrhea. No testicular or inguinal pain. No trauma. . Historical: - Allergies: 20:57 No Known Allergies; - Home Meds: 20:57 None [Active]; - PMHx: 20:57 Diabetes - NIDDM; - PSHx: 20:57 None; - Immunization history:: Adult Immunizations up to date. - Social history:: Smoking status: Patient/guardian denies using tobacco. - Family history:: not pertinent. - Ebola Screening: : Patient negative for fever greater than or equal to 101.5 degrees Fahrenheit, and additional compatible Ebola Virus Disease symptoms Patient denies exposure to infectious person. - Hospitalizations: : No recent hospitalization is reported. ROS: 20:53 Constitutional: Negative for fever, chills, and weight loss, Eyes: Negative for injury, rn pain, redness, and discharge, Neck: Negative for injury, pain, and swelling, Cardiovascular: Negative for chest pain, palpitations, and edema, Respiratory: Negative for shortness of breath, cough, wheezing, and pleuritic chest pain, Abdomen/GI: + lower abd pain, + nausea Back: Negative for injury and pain, : Negative for injury, bleeding, discharge, and swelling, MS/Extremity: Negative for injury and deformity, Neuro: Negative for headache, weakness, numbness, tingling, and seizure. Exam: 20:53 Constitutional: This is a well developed, well nourished patient who is awake, alert, rn and in no acute distress. Head/Face: Normocephalic, atraumatic. ENT: MMM Cardiovascular: Regular rate and rhythm. No pulse deficits. Respiratory: No increased work of breathing, no retractions or nasal flaring. Abdomen/GI: soft, mild periumbilical and suprapubic tenderness, no rebound, no masses Male : Normal genitalia with no discharge or lesions. No testicular swelling or tenderness, no masses, no inguinal hernias or masses. MS/ Extremity: Pulses equal, no cyanosis. Neurovascular intact. Full, normal range of motion. Equal circumference. Vital Signs: 20:58 BP 138 / 93; Pulse 71; Resp 18; Temp 98; Pulse Ox 99% ; Weight 81.65 kg; Height 5 ft. 5 wh in. (165.10 cm); Pain 6/10; 22:00 BP 121 / 75; Pulse 79; Resp 19; Pulse Ox 100% ; rr5 22:45 BP 115 / 78; Pulse 70; Resp 17; Pulse Ox 98% ; rr5 23:20 BP 123 / 65; Pulse 75; Resp 19; Pulse Ox 98% on R/A; rr5 03/28 00:00 BP 131 / 70; Pulse 80; Resp 16; Temp 98; Pulse Ox 98% ; rr5 03/27 20:58 Body Mass Index 29.95 (81.65 kg, 165.10 cm) MDM: 03/27 20:48 Patient medically screened. rn 23:25 Differential diagnosis: appendicitis, diverticulitis, non-specific abd pain, rn Ureterolithiasis, urinary tract infection. Data reviewed: vital signs, nurses notes, lab test result(s), radiologic studies, CT scan, and as a result, I will discharge patient. Counseling: I had a detailed discussion with the patient and/or guardian regarding: the historical points, exam findings, and any diagnostic results supporting the discharge/admit diagnosis, lab results, radiology results, the need for outpatient follow up, to return to the emergency department if symptoms worsen or persist or if there are any questions or concerns that arise at home. Response to treatment: the patient's symptoms have mildly improved after treatment, and as a result, I will discharge patient. Special discussion: Based on the patient's Hx, exam, and Dx evaluation, there is no indication for emergent surgery or inpatient Tx. It is understood by the patient/guardian that if the Sx's persist or worsen they need to return immediately for re-evaluation. I discussed with the patient/guardian in detail that at this point there is no indication for admission to the hospital. It is understood, however, that if the symptoms persist or worsen the patient needs to return immediately for re-evaluation. ED course: Small fat containing right inguinal hernia present, no other acute findings, will dc home as no sign of obstruction/strangulation, will recommend f/u with Ragini mills for elective repair.. 03/27 20:52 Order name: Basic Metabolic Panel; Complete Time: 22:24 03/27 20:52 Order name: CBC with Diff; Complete Time: 22:24 03/27 20:52 Order name: Creatinine for Radiology; Complete Time: 22:24 03/27 20:52 Order name: Hepatic Function; Complete Time: 22:24 03/27 20:52 Order name: Lipase; Complete Time: 22:24 03/27 20:52 Order name: Urine Microscopic Only; Complete Time: 22:24 03/27 20:52 Order name: IV Saline Lock; Complete Time: 21:08 03/27 20:52 Order name: Labs collected and sent; Complete Time: 21:13 03/27 20:52 Order name: CT Abd/Pelvis - IV Contrast Only 03/27 20:52 Order name: Urine Dipstick-Ancillary (obtain specimen); Complete Time: 21:12 03/27 21:09 Order name: Urine Dipstick--Ancillary (enter results); Complete Time: 22:24 ar5 03/27 21:59 Order name: Urine Culture EDMS Administered Medications: 21:10 Drug: Zofran 4 mg Route: IVP; Site: left antecubital; rr5 22:10 Follow up: Response: No adverse reaction rr5 21:12 Drug: Demerol 25 mg {Note: rass 0.} Route: IVP; Site: left antecubital; rr5 22:10 Follow up: Response: No adverse reaction; RASS: Alert and Calm (0) rr5 Disposition: 03/27/19 23:27 Discharged to Home. Impression: Unilateral inguinal hernia, without obstruction or gangrene. - Condition is Stable. - Discharge Instructions: Inguinal Hernia, Adult. - Medication Reconciliation Form, Thank You Letter, Antibiotic Education, Prescription Opioid Use form. - Follow up: Prabhakar Mills MD; When: As needed; Reason: Recheck today's complaints, Re-evaluation by your physician. - Problem is an ongoing problem. - Symptoms have improved. Signatures: Dispatcher [employer] EDMS Mikey Cervantes MD MD rn Habalo, Winsy wh Roque, Raymond, RN RN rr5 Corrections: (The following items were deleted from the chart) 03/28 00:11 03/27 23:27 03/27/2019 23:27 Discharged to Home. Impression: Unilateral inguinal rr5 hernia, without obstruction or gangrene. Condition is Stable. Forms are Medication Reconciliation Form, Thank You Letter, Antibiotic Education, Prescription Opioid Use. Follow up: Prabhakar Mills; When: As needed; Reason: Recheck today's complaints, Re-evaluation by your physician. Problem is an ongoing problem. Symptoms have improved. rn
--- NOTE | 2019-03-27 23:28 | ER ---
Nurse's Notes [facility] Name: Chip Maria Age: 48 yrs Sex: Male : 1970 Arrival Date: 03/27/2019 Time: 20:40 Bed 14 Private MD: Dick Garcia R Diagnosis: Unilateral inguinal hernia, without obstruction or gangrene Presentation: 03/27 20:54 Presenting complaint: Patient states: groin pain for 2 weeks now, denies NVD or fever. Transition of care: patient was not received from another setting of care. Onset of symptoms was March 14, 2019. Risk Assessment: Do you want to hurt yourself or someone else? Patient reports no desire to harm self or others. Initial Sepsis Screen: Does the patient meet any 2 criteria? No. Patient's initial sepsis screen is negative. Does the patient have a suspected source of infection? No. Patient's initial sepsis screen is negative. Care prior to arrival: None. 20:54 Method Of Arrival: Ambulatory 20:54 Acuity: GIOVANI 3 Historical: - Allergies: 20:57 No Known Allergies; - Home Meds: 20:57 None [Active]; - PMHx: 20:57 Diabetes - NIDDM; - PSHx: 20:57 None; - Immunization history:: Adult Immunizations up to date. - Social history:: Smoking status: Patient/guardian denies using tobacco. - Family history:: not pertinent. - Ebola Screening: : Patient negative for fever greater than or equal to 101.5 degrees Fahrenheit, and additional compatible Ebola Virus Disease symptoms Patient denies exposure to infectious person. - Hospitalizations: : No recent hospitalization is reported. Screenin:57 Abuse screen: Denies threats or abuse. Denies injuries from another. Nutritional screening: No deficits noted. Tuberculosis screening: No symptoms or risk factors identified. Fall Risk None identified. Assessment: 21:00 General: Appears in no apparent distress. comfortable, Behavior is calm, cooperative, rr5 appropriate for age. Pain: Complains of pain in pelvis Pain does not radiate. Pain currently is 6 out of 10 on a pain scale. Quality of pain is described as aching, Pain began gradually, Is intermittent. Neuro: Level of Consciousness is awake, alert, obeys commands, Oriented to person, place, time, situation, Appropriate for age. Cardiovascular: Capillary refill < 3 seconds Patient's skin is warm and dry. Respiratory: Airway is patent Respiratory effort is even, unlabored, Respiratory pattern is regular, symmetrical. GI: No signs and/or symptoms were reported involving the gastrointestinal system. : Urine is clear, Reports pain in suprapubic area. EENT: No signs and/or symptoms were reported regarding the EENT system. Derm: Skin is intact, is healthy with good turgor, Skin temperature is warm. Musculoskeletal: Capillary refill < 3 seconds, contractured right arm. 21:55 Reassessment: Patient appears in no apparent distress at this time. Patient is alert, rr5 oriented x 3, equal unlabored respirations, skin warm/dry/pink. send for CT scan. assisted by CT staff. 23:00 Reassessment: Patient appears in no apparent distress at this time. Patient and/or rr5 family updated on plan of care and expected duration. Pain level reassessed. awaiting for result. 03/28 00:00 Reassessment: Patient appears in no apparent distress at this time. Patient is alert, rr5 oriented x 3, equal unlabored respirations, skin warm/dry/pink. discharge instruction given and explained without complaints made, verbalized understanding. Patient states feeling better. Patient states symptoms have improved. Vital Signs: 03/27 20:58 BP 138 / 93; Pulse 71; Resp 18; Temp 98; Pulse Ox 99% ; Weight 81.65 kg; Height 5 ft. 5 wh in. (165.10 cm); Pain 6/10; 22:00 BP 121 / 75; Pulse 79; Resp 19; Pulse Ox 100% ; rr5 22:45 BP 115 / 78; Pulse 70; Resp 17; Pulse Ox 98% ; rr5 23:20 BP 123 / 65; Pulse 75; Resp 19; Pulse Ox 98% on R/A; rr5 03/28 00:00 BP 131 / 70; Pulse 80; Resp 16; Temp 98; Pulse Ox 98% ; rr5 03/27 20:58 Body Mass Index 29.95 (81.65 kg, 165.10 cm) ED Course: 03/27 20:40 Patient arrived in ED. es 20:44 Dick Garcia MD is Private Physician. es 20:48 Mikey Cervantes MD is Attending Physician. rn 20:56 Triage completed. wh 20:57 Patient has correct armband on for positive identification. Bed in low position. Call light in reach. Side rails up X 1. Pulse ox on. NIBP on. 20:58 Stefano Burrell, RN is Primary Nurse. rr5 20:58 Arm band placed on. wh 21:11 Inserted saline lock: 20 gauge in left antecubital area, using aseptic technique. Blood oe collected. 22:11 CT completed. Patient tolerated procedure well. Patient moved back from CT. bq 22:24 CT Abd/Pelvis - IV Contrast Only In Process Unspecified. EDMS 23:27 Prabhakar Nuno MD is Referral Physician. rn 03/28 00:00 No provider procedures requiring assistance completed. IV discontinued, intact, rr5 bleeding controlled, No redness/swelling at site. Pressure dressing applied. Administered Medications: 03/27 21:10 Drug: Zofran 4 mg Route: IVP; Site: left antecubital; rr5 22:10 Follow up: Response: No adverse reaction rr5 21:12 Drug: Demerol 25 mg {Note: rass 0.} Route: IVP; Site: left antecubital; rr5 22:10 Follow up: Response: No adverse reaction; RASS: Alert and Calm (0) rr5 Outcome: 23:27 Discharge ordered by . rn 03/28 00:00 Discharged to home ambulatory, with family. rr5 Condition: stable Discharge instructions given to patient, Instructed on discharge instructions, follow up and referral plans. Demonstrated understanding of instructions, follow-up care. 00:11 Patient left the ED. rr5 Signatures: Dispatcher [employer] EDMT Tish Reyes Betty Mikey Cervantes MD MD rn Espinosa, Orlando oe Habalo, Winsy Stefano Burrell, RN RN rr5
[2019-03-28 02:21] VITALS: TEMP 98
[2019-03-28 02:24] VITALS: BP 115/78; O2SAT 98
--- NOTE | 2019-03-29 12:54 | RAD REPORT ---
EXAM DESCRIPTION: CT - Abdomen Pelvis W Contrast - 03/27/2019 10:24 pm CLINICAL HISTORY: 48 years Male lower abdominal/groin pain TECHNIQUE: Contiguous axial images obtained through the abdomen and pelvis following intravenous con trast administration. Coronal and sagittal reformatted images provided. This CT exam was performed according to our departmental dose-optimization program, which includes on e or more of the following dose reduction techniques: automated exposure control, adjustment of the m A and/or kV according to patient size, and/or use of iterative reconstruction technique. COMPARISON: No prior exams provided for comparison. FINDINGS: There is a small fat-containing right inguinal hernia which does not appear inflamed. No b owel herniation. Scattered colonic diverticuli. No bowel inflammation, obstruction, free intraperitoneal air, or ascit es. The appendix is normal. Minimal bibasilar atelectasis. Steatosis of the liver without focal lesion. Punctate nonobstructing intrarenal calculi on the right. The kidneys are otherwise normal without hyd ronephrosis or pyelonephritis. The biliary tree, gallbladder, pancreas, spleen, adrenal glands, and urinary bladder are normal. Mild chronic degenerative changes throughout the spine without acute fracture or aggressive osseous l esion. IMPRESSION: Small fat-containing right inguinal hernia does not appear inflamed. No other acute findings in the abdomen or pelvis. Colonic diverticulosis without diverticulitis. Punctate nonobstructing intrarenal calculi on the right. Electronically signed by: Jayne Francois MD 03/27/2019 11:02 PM SCREEN PRINT OPERATOR Due to temporary technical issues with the PACS/Fluency reporting system, reports are being signed by the in house radiologist as a courtesy to ensure prompt reporting. The interpreting radiologist is f ully responsible for the content of the report.
== END 2019-03-28 00:11 | disposition home or self-care (01) ==
LOC: ER 20:39
DX: K40.90 Unilateral inguinal hernia, without obstruction or gangrene, not specified as recurrent (principal); E11.9 Type 2 diabetes mellitus without complications
CPT/HCPCS: 87088; 85025; 80048; 36415; 80076; 83690; 74177; 96375; 96374; 99284; Q9967; J2175; J2405; 81003; 81015; 87086

== ENCOUNTER 2019-04-12 07:36 | Day surgery (SDC) | payer BC, OTHER ==
[2019-04-08 15:55] LABS: Absolute Lymphocytes (CBC) 2.5 K/uL (0.7-4.9); Basophils % 0.7 % (0-1.3); Hematocrit 43.3 % (39.6-49.0); Lymphocytes % 35.9 % (15.3-44.8)
[2019-04-08 16:08] LABS: BUN Blood Urea Nitrogen 11 mg/dL (7-18); Bicarbonate 29 mmol/L (21-32); Glucose Level 103 mg/dL (74-106); Potassium 4.1 mmol/L (3.5-5.1); Sodium Level 140 mmol/L (136-145)
--- NOTE | 2019-04-08 16:41 | RAD REPORT ---
EXAM DESCRIPTION: RAD - Chest Pa And Lat (2 Views) - 04/08/2019 3:26 pm CLINICAL HISTORY: preop, pending hernia repair COMPARISON: December 11 TECHNIQUE: PA and lateral views of the chest were obtained. FINDINGS: The lungs are clear. Interstitial pattern matches comparison. Heart size is normal and ce ntral vasculature is within normal limits. No pleural effusion or pneumothorax seen. No acute bony finding noted. No aortic abnormality. IMPRESSION: No acute cardiopulmonary process.
--- NOTE | 2019-04-09 13:50 | EKG ---
Test Date: 2019-04-08 Test Time: 15:07:54 Egg Processor: GUANAKITO MEASUREMENT RESULTS: Intervals: Rate: 63 NV: 162 QRSD: 98 QT: 378 QTc: 386 [place]: P: 28 NV: 162 QRS: 22 T: 52 INTERPRETIVE STATEMENTS: Normal sinus rhythm Normal ECG Compared to ECG 12/11/2018 20:30:46 No significant changes Electronically Signed On 04-09-19 13:46:56 ADJUNCT PROFESSOR OF ENGLISH by Kaiden Grossman
[2019-04-12] MEDS ORDERED: Ringers Lactate 1,000 ML IV ONE ×2 (08:15→09:57)
[2019-04-12] MEDS ORDERED: CEFAZOLIN/SWI 1gm 1 GM/10 ML SYR ONE (08:15)
[2019-04-12] MEDS ORDERED: LIDOCAINE 2% MPF 5 ML VIAL ONE ×2 (08:53→09:54)
[2019-04-12] MEDS ORDERED: propofoL 200 MG/20 ML VIAL IV ONE ×2 (08:53→09:54)
[2019-04-12] MEDS ORDERED: ROCURONIUM 50 MG/5 ML VIAL IV ONE ×2 (08:53→09:54)
[2019-04-12] MEDS ORDERED: FENTANYL CITR 100 MCG/2 ML ONE ×3 (08:53→09:57)
[2019-04-12] MEDS ORDERED: MIDAZOLAM HCL 2 MG/2 ML INJ ONE ×2 (08:53→09:54)
[2019-04-12] MEDS ORDERED: ONDANSETRON 4 MG/2 ML VIAL ONE (09:55)
[2019-04-12] MEDS ORDERED: dexAMETHasone 10 MG/ML VIAL ONE (09:55)
[2019-04-12] MEDS ORDERED: EPHEDRINE SULF 50 MG/ML VIAL ONE (10:01)
[2019-04-12] MEDS ORDERED: GLYCOPYRROLATE 0.2 MG/ML SYR ONE (10:08)
--- NOTE | 2019-04-12 10:11 | P.BOP ---
Preoperative diagnosis: incarcerated tender right inguinal hernia, tender left inguinal hernia Postoperative diagnosis: same Primary procedure: 1. Laparoscopic repair of incarcerated right inguinal hernia with mesh Secondary procedure: 2. Laparoscopic repair of tender left inguinal hernia with mesh Professional Nurse: JEAN OLSON (RUBBER PROCESS HAND) Estimated blood loss: <10cc Specimen: none Findings: as above Anesthesia: General Complications: None Implants: 3D mesh Transferred to: Recovery Room Condition: Good
[2019-04-12] MEDS ORDERED: KETOROLAC 30 MG/ML INJ ONE (10:12)
[2019-04-12] MEDS ORDERED: NEOSTIGMINE 1 MG/ML -10 ML VIAL ONE (10:12)
[2019-04-12] MEDS ORDERED: HYDROCODONE/APAP 7.5/325 MG TAB ONE (11:47)
[2019-04-12 12:41] VITALS: BP 113/71; TEMP 97.4; O2SAT 96
--- NOTE | 2019-04-13 00:07 | OP ---
Surgeon: Prabhakar Nuno MD Diagnosis: Bilateral inguinal hernias. Procedure: Laparoscopic repair of right and left inguinal hernia with mesh. Disposition: Home. Activity: As tolerated. No heavy lifting. Followup: Follow up in my office in 1 week. Call for appointment [phone]. Keep area dry for 48 ho urs, then may shower. Keep Steri-Strips intact. Medications: Include hydrocodone 7.5 q.4 hours p.r.n. pain. DENIS/TUYET Voice ID: [id number] Report ID: [id number]
--- NOTE | 2019-04-13 00:07 | OP ---
Date of Procedure: 04/12/2019 Surgeon: Prabhakar Nuno MD Bookbinder Chief: DONALD Melara. Postoperative Diagnoses: Incarcerated tender right inguinal hernia and reducible tender left inguina l hernia. Postoperative Diagnoses: Incarcerated tender right inguinal hernia and reducible tender left inguina l hernia. Procedures: 1.Laparoscopic repair of incarcerated right inguinal hernia with mesh. 2.Laparoscopic repair of tender left inguinal hernia with mesh. Estimated Blood Loss: Less than 10 mL. Specimen: None. Anesthesia: General plus local. Implant: 3D mesh right and left. Indications: This is the case of a male, who comes to us with above diagnosis. Fully explained the benefits, alternatives, and risks of laparoscopic, possible open repair of bilateral inguinal hernias with mesh with benefits, alternatives, and risks including, but not limited to infection, bleeding, damage to adjacent structures, anesthetic complication, chronic pain, chronic numbness, recurrence, M I, even . He also understands this may not relieve the symptoms, he might need more than one gardner rgical intervention. He understood, signed the consent. Patient also explained the use of mesh in t his case bilaterally. Pros and cons of mesh placement were discussed with the patient. All the ques tions were answered to his satisfaction. He did consent for mesh placement. Description Of Procedure: Patient was brought to the operating room, placed in supine position. Ane sthesia was done without complication. A time-out was called. Abdomen and inguinal area were preppe d and draped in sterile fashion. Marcaine 0.5% was injected for local anesthetic. The first incisio n was done in the infraumbilical region. The incision was carried down until we find anterior rectus sheath and the muscle was retracted laterally to expose the posterior rectus sheath. The extraperit boyce space was developed with the help of blunt dissection and a balloon-tip catheter space maker di rected toward the pubis symphysis. A laparoscope was then placed into the trocar. The balloon was c arefully inflated under direct visualization to create the extraperitoneal space. After that, the ba lloon was deflated and removed from the working space. Insufflation was done and after we looked at the preperitoneal space, we proceeded to place a 5 mm trocar at the area just above the pubis symphys is and another one retirement between the first and the second one. The preperitoneal space was further developed by exposing the inferior epigastric vessels and keeping them anterior. Jian ligament wa s dissected laterally to the junction with the iliac veins. We started with the right side first, wh ich was the one with incarceration. The dissection was continued inferiorly to the iliopubic tract, avoiding damage to the femoral branch of the genitofemoral nerve and lateral femoral cutaneous nerve. We noticed a hernia sac with incarcerated omentum, it looked viable. We pushed it back into the ab dominal cavity. The hernia sac was removed from the cord after the cord structures were skeletonized . The sac was identified and reduced once again. At that moment, I proceeded to go into the opposit e side. He also had an opposite hernia, so we proceeded to identify the structures using same techni que with the same findings of indirect hernia sac. The cord structures were skeletonized. The herni a sac was reduced into the peritoneal cavity. The same technique as the right side. Once we had tho se hernia sac reduced, then we introduced first the left side. I proceeded to place a 3D mesh, meghann d through the one of the trocar sites and we proceeded to cover direct/indirect spaces. The mesh was secured in place laterally and superior to the iliopubic tract and the inferior and medial to the Co oper ligament using a SorbaFix fixation device. The same was repeated on the opposite side on the ri ght side. After making sure we have complete hemostasis and making sure the hernia sac was still red uced into the peritoneal cavity, we proceeded to stop the insufflation. This area was allowed to com e out as was still holding the mesh in place. The anterior rectus sheath was then closed with #1 Willy ryl and the skin with 3-0 chromic in a subcuticular fashion. Sponge count and instrument counts were correct. Patient tolerated the procedure well. Patient was sent to recovery in stable condition. DENIS/TUYET Voice ID: [id number] Report ID: [id number]
== END 2019-04-12 13:25 | disposition home or self-care (01) ==
LOC: OR 07:36
PROVIDERS: ATTEND Surgery
PROC: 0YUA4JZ Supplement Bilateral Inguinal Region with Synthetic Substitute, Percutaneous Endoscopic Approach (ICD-10-PCS; principal; 2019-04-12 09:45)
DX: K40.30 Unilateral inguinal hernia, with obstruction, without gangrene, not specified as recurrent (principal); K40.90 Unilateral inguinal hernia, without obstruction or gangrene, not specified as recurrent
CPT/HCPCS: 93005; 85025; 80048; 36415; 71046; 49650; J2704; J2710; J2250; J3010 ×2; J1100; J0690; J7120 ×2; J2405

== ENCOUNTER 2019-09-23 21:00 | Emergency (ER) | payer BC, OTHER ==
[2019-09-23] MEDS ORDERED: MECLIZINE HCL 12.5 MG TAB ONE (22:08)
[2019-09-23 22:13] LABS: Absolute Lymphocytes (CBC) 2.3 K/uL (0.7-4.9); Basophils % 0.8 % (0-1.3); Hematocrit 42.1 % (39.6-49.0); Lymphocytes % 30.9 % (15.3-44.8); MPV 9.3 fL (7.6-11.3); Protime INR 1.02; RBC Red Blood Cell Count 4.73 M/uL (4.33-5.43)
[2019-09-23 22:34] LABS: ALT/SGPT 32 U/L (12-78); AST/SGOT 23 U/L (15-37); Albumin 4.1 g/dL (3.4-5.0); Alkaline Phosphatase 107 U/L (45-117); BUN Blood Urea Nitrogen 15 mg/dL (7-18); Bicarbonate 29 mmol/L (21-32); Bilirubin Direct 0.1 mg/dL (0-0.2); Bilirubin Total 0.5 mg/dL (0.2-1.0); Glucose Level 94 mg/dL (74-106); Magnesium 2.4 mg/dL (1.8-2.4); NT PRO-BNP 6 pg/mL (<125); Potassium 3.9 mmol/L (3.5-5.1); Protein, Total 8.2 g/dL (6.4-8.2); Sodium Level 138 mmol/L (136-145); Troponin (Emerg Dept Use Only) < 0.02 ng/mL (0.0-0.045)
[2019-09-23] MEDS ORDERED: NA CHLORIDE 0.9% 1,000 ML ONE (23:51)
--- NOTE | 2019-09-24 00:22 | EDPHYS ---
Physician Documentation [facility] Name: Chip Maria Age: 49 yrs Sex: Male : 1970 Arrival Date: 09/23/2019 Time: 21:01 Bed 5 Private MD: ED Physician Mikey Cervantes HPI: 09/22 21:28 This 49 yrs old Male presents to ER via Ambulatory with complaints of Nausea, jmm Dizziness, Chills. 21:28 The patient presents to the emergency department with nausea. Onset: The jmm symptoms/episode began/occurred acutely. Possible causes: unknown. The symptoms are aggravated by movement The symptoms are alleviated by lying down. This is a 49 year old male with a history of dm that presents to the ED with complaints of dizziness beginning this morning with a near syncopal episode. Symptoms are exacerbated by movement. Denies fever. . Historical: - Allergies: 21:14 No Known Allergies; ll1 - PMHx: 21:14 Diabetes - NIDDM; ll1 - PSHx: 21:14 None; ll1 - Social history:: Smoking status: Patient denies any tobacco usage or history of. Patient/guardian denies using alcohol, street drugs, tobacco products. ROS: 21:28 Constitutional: Negative for fever, chills, and weight loss, Cardiovascular: Negative jmm for chest pain, palpitations, and edema, Respiratory: Negative for shortness of breath, cough, wheezing, and pleuritic chest pain. 21:28 Abdomen/GI: Positive for nausea. 21:28 All other systems are negative. Exam: 21:28 Constitutional: This is a well developed, well nourished patient who is awake, alert, jmm and in no acute distress. Head/Face: atraumatic. ENT: Moist Mucus Membranes 21:28 Neck: Trachea midline, Supple Chest/axilla: Normal chest wall appearance and motion. 21:28 Eyes: horizontal nystagmus. 21:28 Cardiovascular: Rate: bradycardic, Rhythm: regular, Pulses: no pulse deficits are appreciated. 21:28 ECG was reviewed by the Attending Physician. 21:28 Respiratory: the patient does not display signs of respiratory distress, Respirations: normal, Breath sounds: are clear throughout. 21:28 Abdomen/GI: Inspection: abdomen appears normal, Bowel sounds: normal, Palpation: abdomen is soft and non-tender, in all quadrants. 21:28 Musculoskeletal/extremity: ROM: intact in all extremities. 21:28 Skin: Appearance: Color: normal in color. 21:28 Neuro: Orientation: is normal, Mentation: is normal, Memory: is normal, Cerebellar function: normal finger to nose testing. 21:28 Psych: exam not indicated, Behavior/mood is pleasant, cooperative. Vital Signs: 21:12 BP 139 / 101; Pulse 74; Resp 18; Temp 97.8; Pulse Ox 97% ; Pain 0/10; ll1 21:30 BP 140 / 90; Pulse 67; Resp 16; Pulse Ox 96% on R/A; jb4 23:00 BP 139 / 106; Pulse 66; Resp 18; Pulse Ox 94% on R/A; jb4 09/23 00:00 BP 118 / 85; Pulse 67; Resp 16; Pulse Ox 98% on R/A; jb4 01:00 BP 135 / 85; Pulse 66; Resp 17 S; Pulse Ox 94% on R/A; jd3 MDM: 09/22 21:28 Patient medically screened. [facility] 09/23 00:16 Data reviewed: vital signs, nurses notes. Counseling: I had a detailed discussion with [facility] the patient and/or guardian regarding: the historical points, exam findings, and any diagnostic results supporting the discharge/admit diagnosis, lab results, radiology results, the need for outpatient follow up, to return to the emergency department if symptoms worsen or persist or if there are any questions or concerns that arise at home. ED course: Imaging studies negative. Patient was advised to follow up with neuro for further evaluation. Dizziness was relieved. Most likely peripheral vertigo. Patient is advised to follow up with pcp and otherwise given strict return precautions. Patient understood and agrees with the plan of care. . 09/22 21:32 Order name: Basic Metabolic Panel; Complete Time: 22:42 [facility] 09/22 21:32 Order name: CBC with Diff; Complete Time: 22:18 [facility] 09/22 21:32 Order name: LFT's; Complete Time: 22:42 [facility] 09/22 21:32 Order name: Magnesium; Complete Time: 22:42 [facility] 09/22 21:32 Order name: NT PRO-BNP; Complete Time: 22:42 [facility] 09/22 21:32 Order name: PT-INR; Complete Time: 22:18 [facility] 09/22 21:32 Order name: Troponin (emerg Dept Use Only); Complete Time: 22:42 [facility] 09/22 21:32 Order name: XRAY Chest (1 view) [facility] 09/22 21:32 Order name: CT Head Brain wo Cont [facility] 09/22 21:32 Order name: CT Head Angio [facility] 09/22 21:32 Order name: CT Neck Angio [facility] 09/22 22:40 Order name: CREATININE WHOLE BLOOD; Complete Time: 22:42 [facility] 09/22 21:32 Order name: EKG; Complete Time: 21:33 [facility] 09/22 21:32 Order name: Cardiac monitoring; Complete Time: 21:58 [facility] 09/22 21:32 Order name: EKG - Nurse/Tech; Complete Time: 21:59 [facility] 09/22 21:32 Order name: IV Saline Lock; Complete Time: 21:59 [facility] 09/22 21:32 Order name: Labs collected and sent; Complete Time: 21:59 [facility] 21:32 Order name: O2 Per Protocol; Complete Time: 21:59 [facility] 09/22 21:32 Order name: O2 Sat Monitoring; Complete Time: 21:59 [facility] EC/11 21:28 Rate is 63 beats/min. Rhythm is regular. QRS [place] is Normal. MO interval is normal. QRS jmm interval is normal. QT interval is normal. No Q waves. T waves are Normal. No ST changes noted. Reviewed by me. Administered Medications: 22:03 Drug: Meclizine 50 mg Route: PO; jb4 23:00 Follow up: Response: No adverse reaction; Marked relief of symptoms jb4 23:45 Drug: NS 0.9% 1000 ml Route: IV; Rate: 1 bolus; Site: left antecubital; jb4 09/23 01:00 Follow up: Response: No adverse reaction; IV Status: Order to discontinue infusion; IV jb4 Intake: 500ml Disposition: 02:32 Co-signature as Attending Physician, Mikey Cervantes MD. rn Disposition: 09/24/19 00:22 Discharged to Home. Impression: Vertigo. - Condition is Stable. - Discharge Instructions: Benign Positional Vertigo. - Prescriptions for Meclizine 25 mg Oral Tablet - take 1 tablet by ORAL route every 8 hours As needed; 30 tablet. - Medication Reconciliation Form, Thank You Letter, Antibiotic Education, Prescription Opioid Use form. - Follow up: Alok Escamilla MD; When: 2 - 3 days; Reason: Recheck today's complaints, Continuance of care, Re-evaluation by your physician. Signatures: Dispatcher [employer] EDMS Sudeep Rodríguez PA PA jmm Nieto, Roman, MD MD rn Bryson, James, RN RN jb4 Vickey Gonzalez RN RN ll1 Corrections: (The following items were deleted from the chart) 01:09 00:22 09/24/2019 00:22 Discharged to Home. Impression: Vertigo. Condition is Stable. jb4 Forms are Medication Reconciliation Form, Thank You Letter, Antibiotic Education, Prescription Opioid Use. Follow up: Alok Escamilla; When: 2 - 3 days; Reason: Recheck today's complaints, Continuance of care, Re-evaluation by your physician. sabrina
--- NOTE | 2019-09-24 00:22 | ER ---
Nurse's Notes [facility] Name: Chip Maria Age: 49 yrs Sex: Male : 1970 Arrival Date: 09/23/2019 Time: 21:01 Bed 5 Private MD: Diagnosis: Vertigo Presentation: 09/22 21:12 Chief complaint: Patient states: Dizziness, nausea, chills, and stomach ache for 1 day. ll1 No fever. Coronavirus screen: Proceed with normal triage. Patient reports a cough. Patient denies shortness of breath or difficulty breathing. Patient denies measured and/or subjective temperature greater than 100.4F prior to today's visit. Patient denies travel on a cruise ship or to a country the [facility] currently lists as an affected area. Patient denies contact with known and/or suspected case of COVID-19. Ebola Screen: Patient denies travel to an Ebola-affected area in the 21 days before illness onset. Initial Sepsis Screen: Does the patient meet any 2 criteria? No. Patient's initial sepsis screen is negative. Does the patient have a suspected source of infection? No. Patient's initial sepsis screen is negative. Risk Assessment: Do you want to hurt yourself or someone else? Patient reports no desire to harm self or others. Onset of symptoms was September 23, 2019. 21:12 Method Of Arrival: Ambulatory ll1 21:12 Acuity: GIOVANI 3 ll1 Historical: - Allergies: 21:14 No Known Allergies; ll1 - PMHx: 21:14 Diabetes - NIDDM; ll1 - PSHx: 21:14 None; ll1 - Social history:: Smoking status: Patient denies any tobacco usage or history of. Patient/guardian denies using alcohol, street drugs, tobacco products. Screenin:10 Abuse screen: Denies threats or abuse. Nutritional screening: No deficits noted. jb4 Tuberculosis screening: No symptoms or risk factors identified. Fall Risk None identified. Assessment: 21:10 General: Appears in no apparent distress. comfortable, Behavior is calm, cooperative, jb4 appropriate for age. Pain: Complains of pain in umbilical area Pain radiates to epigastric area Pain currently is 5 out of 10 on a pain scale. Quality of pain is described as burning, Pain began 2-3 days ago. Neuro: Level of Consciousness is awake, alert, obeys commands, Oriented to person, place, time, situation, Reports dizziness. Cardiovascular: Patient's skin is warm and dry. Respiratory: Airway is patent Respiratory effort is even, unlabored, Respiratory pattern is regular, symmetrical. GI: Abdomen is round non-distended, Reports upper abdominal pain, nausea. : No signs and/or symptoms were reported regarding the genitourinary system. EENT: No signs and/or symptoms were reported regarding the EENT system. Derm: Skin is intact, Skin is pink, warm \T\ dry. Musculoskeletal: Circulation, motion, and sensation intact. Range of motion: intact in all extremities. 22:04 Reassessment: Patient appears in no apparent distress at this time. Patient and/or jb4 family updated on plan of care and expected duration. Pain level reassessed. Patient is alert, oriented x 3, equal unlabored respirations, skin warm/dry/pink. 23:15 Reassessment: Patient appears in no apparent distress at this time. Patient and/or jb4 family updated on plan of care and expected duration. Pain level reassessed. Patient is alert, oriented x 3, equal unlabored respirations, skin warm/dry/pink. Pt reports dizziness is improved Patient states feeling better. 09/23 00:15 Reassessment: Patient appears in no apparent distress at this time. Patient and/or jb4 family updated on plan of care and expected duration. Pain level reassessed. Patient is alert, oriented x 3, equal unlabored respirations, skin warm/dry/pink. 00:25 Reassessment: D'c pending completion of IV fluids. jb4 00:59 Reassessment: Patient appears in no apparent distress at this time. Patient and/or jb4 family updated on plan of care and expected duration. Pain level reassessed. Patient is alert, oriented x 3, equal unlabored respirations, skin warm/dry/pink. PT refuses the remaining fluids, received 500ml's. Patient states feeling better. Vital Signs: 09/22 21:12 BP 139 / 101; Pulse 74; Resp 18; Temp 97.8; Pulse Ox 97% ; Pain 0/10; ll1 21:30 BP 140 / 90; Pulse 67; Resp 16; Pulse Ox 96% on R/A; jb4 23:00 BP 139 / 106; Pulse 66; Resp 18; Pulse Ox 94% on R/A; jb4 09/23 00:00 BP 118 / 85; Pulse 67; Resp 16; Pulse Ox 98% on R/A; jb4 01:00 BP 135 / 85; Pulse 66; Resp 17 S; Pulse Ox 94% on R/A; jd3 ED Course: 09/22 21:01 Patient arrived in ED. cf2 21:06 Lauro Dupont, RN is Primary Nurse. jb4 21:10 Patient has correct armband on for positive identification. Bed in low position. Call jb4 light in reach. Side rails up X 1. equipment monitor phototypesetting on. Pulse ox on. NIBP on. 21:13 Triage completed. ll1 21:14 Sudeep Rodríguez PA is PHCP. m 21:14 Mikey Cervantes MD is Attending Physician. jmm 21:14 Arm band placed on Patient placed in an exam room, on a stretcher. ll1 22:05 Inserted saline lock: 20 gauge in left forearm, using aseptic technique. tt3 22:23 XRAY Chest (1 view) In Process Unspecified. EDMS 22:25 CT Head Brain wo Cont In Process Unspecified. EDMS 22:27 CT Head Angio In Process Unspecified. EDMS 22:27 CT Neck Angio In Process Unspecified. EDMS 09/23 00:21 Alok Escamilla MD is Referral Physician. [facility] 01:09 No provider procedures requiring assistance completed. IV discontinued, intact, jb4 bleeding controlled, No redness/swelling at site. Pressure dressing applied. Administered Medications: 09/22 22:03 Drug: Meclizine 50 mg Route: PO; jb4 23:00 Follow up: Response: No adverse reaction; Marked relief of symptoms jb4 23:45 Drug: NS 0.9% 1000 ml Route: IV; Rate: 1 bolus; Site: left antecubital; jb4 09/23 01:00 Follow up: Response: No adverse reaction; IV Status: Order to discontinue infusion; IV jb4 Intake: 500ml Intake: 01:00 IV: 500ml; Total: 500ml. jb4 Outcome: 00:22 Discharge ordered by . jm 01:09 Discharged to home ambulatory, with family. jb4 01:09 Condition: stable 01:09 Discharge instructions given to patient, Instructed on discharge instructions, follow up and referral plans. medication usage, Demonstrated understanding of instructions, follow-up care, medications, Prescriptions given X 1. 01:09 Patient left the ED. jb4 Signatures: Dispatcher [employer] EDSudeep Arriaga PA PA jmm Bryson, James RN RN jb4 Adrián Holly RN RN jd3 Rambo Berger cf2 Vickey Gonzalez RN RN ll1 [place] tt3 Corrections: (The following items were deleted from the chart) 00:47 00:45 Reassessment: Pt unable to tolerate PO contrast, per ER physician CT notified to jb4 use IV contrast only. jb4
[2019-09-24 01:20] VITALS: TEMP 97.8
[2019-09-24 01:25] VITALS: BP 135/85; O2SAT 94
--- NOTE | 2019-09-24 07:48 | RAD REPORT ---
EXAM DESCRIPTION: Abhinav Single View09/23/2019 10:21 pm CLINICAL HISTORY: Chest pain COMPARISON: 2018 FINDINGS: The lungs appear clear of acute infiltrate. The heart is normal size IMPRESSION: No acute abnormalities displayed
--- NOTE | 2019-09-24 11:06 | RAD REPORT ---
EXAM DESCRIPTION: Damon Angio09/24/2019 6:44 am CLINICAL HISTORY: The patient is 49 years old and is Male; DIZZINESS TECHNIQUE: Axial computed tomographic angiography images of the head and neck with intravenous contr ast. This CT exam was performed using one or more of the following dose reduction techniques: aut omated exposure control, adjustment of the mA and/or kV according to patient size, and/or use of iter ative reconstruction technique. MIP reconstructed images were created and reviewed. DLP: 1420 mGy*cm COMPARISON: CT head without contrast of the same day. FINDINGS: HEAD: BRAIN: No intracranial hemorrhage. No mass effect. Prominence of cerebral sulci and cisterns. Conf luent periventricular and subcortical white matter hypodensity. SINUSES: Paranasal sinuses are clear. MASTOID AIR CELLS: Mastoid air cells are well-pneumatized. ORBITS: Globes and orbits are within normal limits. RIGHT ANTERIOR CEREBRAL ARTERY: Unremarkable. No occlusion or significant stenosis. No aneurys m. RIGHT MIDDLE CEREBRAL ARTERY: Unremarkable. No occlusion or significant stenosis. No aneurysm. RIGHT POSTERIOR CEREBRAL ARTERY: Unremarkable. No occlusion or significant stenosis. No aneury sm. LEFT ANTERIOR CEREBRAL ARTERY: Unremarkable. No occlusion or significant stenosis. No aneurysm . LEFT MIDDLE CEREBRAL ARTERY: Unremarkable. No occlusion or significant stenosis. No aneurysm. 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 No occlusion or significant stenosis. No aneurysm. BASILAR ARTERY: Unremarkable. No occlusion or significant stenosis. No aneurysm. NECK: RIGHT COMMON CAROTID ARTERY: Unremarkable. No significant stenosis. No dissection or occlusion . RIGHT INTERNAL CAROTID ARTERY: Unremarkable. No significant stenosis. No dissection or occlusi on. RIGHT EXTERNAL CAROTID ARTERY: Unremarkable. No occlusion. RIGHT VERTEBRAL ARTERY: Dominant right vertebral artery. No significant stenosis. No dissection or occlusion. LEFT COMMON CAROTID ARTERY: Unremarkable. No significant stenosis. No dissection or occlusion. LEFT INTERNAL CAROTID ARTERY: Mild arthritic calcification of the proximal left ICA. No significant stenosis. No dissection or occlusion. LEFT EXTERNAL CAROTID ARTERY: Unremarkable. No occlusion. LEFT VERTEBRAL ARTERY: Unremarkable. No significant stenosis. No dissection or occlusion. THYROID: Visualized thyroid is normal. LUNG APICES: Interstitial prominence in the apical lung zones, likely atelectasis or interstitial edema. HEAD and NECK: BONES/JOINTS: Unchanged left anterior middle cranial fossa consistent with mild mass effect on the temporal lobe. Multilevel degenerative cervical spine. No acute fracture. No dislocation. SOFT TISSUES: Unremarkable as visualized. No mass. CAROTID STENOSIS REFERENCE USING NASCET CRITERIA: % ICA stenosis = (1 - narrowest ICA diameter/diameter of distal cervical ICA) x 100. Mild - Moderate - 50-69% stenosis. Severe - 70-94% stenosis. Near occlusion - 95-99% stenosis. Occluded - 100% stenosis. IMPRESSION: 1. Normal CTA head and neck. Mild calcification of the proximal left ICA. 2. Cerebral volume loss and chronic small vessel ischemic changes. If persistent clinical concern f or acute ischemia, consider MRI brain without contrast for further evaluation. 3. Unchanged left anterior middle cranial fossa consistent with mild mass effect on the temporal lo be. Electronically signed by: Charles Quiros DO 09/23/2019 10:39 PM CDT Due to temporary technical issues with the PACS/Fluency reporting system, reports are being signed by the in house radiologist without review as a courtesy to ensure prompt reporting. The interpreting r adiologist is fully responsible for the content of the report.
--- NOTE | 2019-09-24 11:08 | RAD REPORT ---
EXAM DESCRIPTION: CT - Head Brain Wo Cont - 09/24/2019 6:37 am ADDENDUM #1 ADDENDUM: 2.0 x 1.1 cm arachnoid cyst in the anterior right middle cranial fossa with mild mass effect on the a nterior right temporal lobe. Electronically signed by: Charles Quiros DO 09/23/2019 10:41 PM CDT End of Addendum EXAM DESCRIPTION: Head Brain Wo Cont CLINICAL HISTORY: 49 years Male DIZZINESS COMPARISON: None Technique: Contiguous axial images of the brain were obtained without the administration of intrave nous contrast.This exam was performed according to our departmental dose-optimization program which i ncludes use of Automated Exposure Control, adjustment of the mA and/or kV according to patient size a nd/or use of iterative reconstruction technique. DLP: 1420 mGy*cm FINDINGS: Brain: No acute intracranial hemorrhage. No extra-axial collection. No mass effect or cornell iation. Mild prominence of the sulci and cisterns. Confluent periventricular and subcortical white matter hypodensity is noted. Ventricles: Allowing for underlying cerebral volume loss, ventricular size appears within normal limi ts. Globes and orbits: No acute abnormality. Bones: No acute osseous finding Paranasal sinuses: Paranasal sinuses are clear. Mastoid air cells: Well pneumatized. Soft tissues: Within normal limits IMPRESSION: No acute intracranial hemorrhage, hydrocephalus or herniation. Cerebral volume loss and chronic small vessel ischemic changes. If persistent clinical concern for ac denilson ischemia, consider MRI brain without contrast for further evaluation. Electronically signed by: Charles Quiros DO 09/23/2019 10:35 PM CDT Due to temporary technical issues with the PACS/Fluency reporting system, reports are being signed by the in house radiologist without review as a courtesy to ensure prompt reporting. The interpreting r adiologist is fully responsible for the content of the report.
== END 2019-09-24 01:09 | disposition home or self-care (01) ==
LOC: ER 21:00
DX: R42 Dizziness and giddiness (principal); E11.9 Type 2 diabetes mellitus without complications
CPT/HCPCS: 93005; 85025; 80048; 36415; 83735; 85610; 82565; 80076; 84484; 83880; 70450; 70496; 70498; 71045; 96360; 99284; Q9967; J7030; J8597

== ENCOUNTER 2019-10-19 11:19 | Emergency (ER) | payer BC, OTHER ==
[2019-10-19] MEDS ORDERED: KETOROLAC 30 MG/ML INJ ONE (13:26)
--- NOTE | 2019-10-19 13:43 | RAD REPORT ---
EXAM DESCRIPTION: CT - Abdomen Pelvis Wo Contrast - 10/19/2019 1:24 pm CLINICAL HISTORY: FLANK PAIN COMPARISON: Abdomen Pelvis W Contrast dated 03/27/2019; Abdomen Pelvis W Contrast dated 08/14/2015 ; CT ABD PELVIS W CONTRAST dated 08/09/2008 TECHNIQUE: Axial [address] imaging of the abdomen and pelvis was performed without IV contrast. No IV contrast was given because of allergy, abnormal renal function, patient refusal or physician re quest. No oral contrast. All CT scans are performed using dose optimization technique as appropriate and may include automated exposure control or mA/KV adjustment according to patient size. FINDINGS: No suspicious findings in the lung bases. Liver is prominent in size at 16-17 cm. No focal liver lesion on noncontrast imaging. Attenuation wou ld indicate a mild or borderline diffuse fatty infiltration. No splenomegaly or focal splenic finding . No pancreatic abnormality seen. Gallbladder and biliary tree are also without suspicious finding. G allstones can be occult on CT imaging. No hydronephrosis or suspicious renal mass. Bilateral punctate 1- 2 millimeter sized calyx calculi se en. No obstructing calculus seen. No significant adrenal finding. Isodense renal masses and pyeloneph ritis cannot be excluded in the absence of IV contrast. The urinary bladder is without significant fi nding. No dilated bowel loops or bowel wall thickening. Appendix is normal. Moderate stool volume fills the rectum and distal sigmoid colon. No free air, free fluid or inflammatory stranding. No mass or bulky lymphadenopathy. Very minimal umbilical hernia present similar to comparison. No active process at th is site. No suspicious bony findings. Disc disease and endplate spurring at L3-4 causes borderline to mild jacquelyn tral spinal stenosis. IMPRESSION: Non-contrast enhanced CT abdomen and pelvis imaging show no acute or emergent finding. Patient has nonobstructing bilateral 1- 2 millimeter sized calyx calculi. L3-4 degenerative disc disease with endplate spurring. This causes borderline to mild central spinal stenosis. Full assessment is limited is the absence of IV contrast.
[2019-10-19 15:19] LABS: ALT/SGPT 39 U/L (12-78); Albumin 4.1 g/dL (3.4-5.0); Alkaline Phosphatase 117 U/L (45-117); BUN Blood Urea Nitrogen 15 mg/dL (7-18); Bicarbonate 27 mmol/L (21-32); Bilirubin Total 0.3 mg/dL (0.2-1.0); Glucose Level 98 mg/dL (74-106); Protein, Total 8.4 g/dL (6.4-8.2); Sodium Level 137 mmol/L (136-145)
[2019-10-19 15:20] LABS: AST/SGOT 21 U/L (15-37); Absolute Lymphocytes (CBC) 1.7 K/uL (0.7-4.9); Basophils % 0.8 % (0-1.3); Hematocrit 44.3 % (39.6-49.0); MPV 9.5 fL (7.6-11.3); Potassium 4.1 mmol/L (3.5-5.1); RBC Red Blood Cell Count 4.92 M/uL (4.33-5.43)
--- NOTE | 2019-10-19 15:33 | ER ---
Nurse's Notes [facility] Name: Chip Maria Age: 49 yrs Sex: Male : 1970 Arrival Date: 10/19/2019 Time: 11:23 Bed 4 Private MD: Diagnosis: Unspecified renal colic Presentation: 10/18 11:40 Chief complaint: Patient states: left mid back pain and dizziness X 2 weeks , denies iw abd pain, denies n/v, denies urinary s/s, no hx of kidney stones, did not injure back. Coronavirus screen: Proceed with normal triage. Patient denies a cough. Patient denies shortness of breath or difficulty breathing. Patient denies measured and/or subjective temperature greater than 100.4F prior to today's visit. Patient denies travel on a cruise ship or to a country the [facility] currently lists as an affected area. Patient denies contact with known and/or suspected case of COVID-19. Ebola Screen: Patient negative for fever greater than or equal to 101.5 degrees Fahrenheit, and additional compatible Ebola Virus Disease symptoms Patient denies exposure to infectious person. Patient denies travel to an Ebola-affected area in the 21 days before illness onset. No symptoms or risks identified at this time. Initial Sepsis Screen: Does the patient meet any 2 criteria? No. Patient's initial sepsis screen is negative. Does the patient have a suspected source of infection? No. Patient's initial sepsis screen is negative. Risk Assessment: Do you want to hurt yourself or someone else? Patient reports no desire to harm self or others. Onset of symptoms was October 05, 2019. 11:40 Method Of Arrival: Ambulatory iw 11:40 Acuity: GIOVANI 3 iw Triage Assessment: 11:45 General: Appears in no apparent distress. uncomfortable, obese, Behavior is bp cooperative, appropriate for age, anxious. Pain: Complains of pain in back. EENT: No deficits noted. Neuro: Reports dizziness. Cardiovascular: No deficits noted. Respiratory: No deficits noted. GI: No signs and/or symptoms were reported involving the gastrointestinal system. : Reports pain in right flank(s). Derm:. Musculoskeletal: No deficits noted. Historical: - Allergies: 11:42 No Known Allergies; iw - Home Meds: 11:42 None [Active]; iw - PMHx: 11:42 Diabetes - NIDDM; iw - PSHx: 11:42 None; iw - Immunization history:: Adult Immunizations up to date. - Social history:: Smoking status: Patient denies any tobacco usage or history of. Screenin:53 Abuse screen: Denies threats or abuse. Denies injuries from another. Nutritional hb screening: No deficits noted. Tuberculosis screening: No symptoms or risk factors identified. Fall Risk None identified. Assessment: 11:45 General: SEE TRIAGE NOTE. bp 14:08 Reassessment: PT RETURNED FROM CT. ALL CURRENT ORDERS IN PROCESS. bp 15:26 Reassessment: NO S/S ACUTE DISTRESS, VS STABLE. bp 15:56 Reassessment: PT D/C HOME AMBULATORY, DX WITH RENAL COLIC. bp Vital Signs: 11:40 BP 133 / 81; Pulse 79; Resp 16; Pulse Ox 97% on R/A; Weight 87.09 kg; Height 5 ft. 5 iw in. (165.10 cm); Pain 10/10; 14:00 BP 120 / 88; Pulse 58; Resp 16; Pulse Ox 97% ; bp 15:26 BP 121 / 81; Pulse 57; Resp 16; Pulse Ox 97% ; bp 11:40 Body Mass Index 31.95 (87.09 kg, 165.10 cm) iw ED Course: 11:23 Patient arrived in ED. as 11:42 Triage completed. iw 11:43 Arm band placed on. iw 12:51 Johnathan Liu MD is Attending Physician. ps1 12:53 Karina Giang, RN is Primary Nurse. hb 13:23 CT Abd/Pelvis - Without Contrast In Process Unspecified. EDMS 13:50 Inserted saline lock: 22 gauge in left antecubital area, using aseptic technique. Blood bp collected. 14:10 Patient has correct armband on for positive identification. Bed in low position. Call bp light in reach. Side rails up X2. 15:29 Urine Culture Sent. hb 15:49 No provider procedures requiring assistance completed. IV discontinued, intact, hb bleeding controlled, No redness/swelling at site. Pressure dressing applied. Administered Medications: 13:51 Drug: TORadol - Ketorolac 15 mg Route: IVP; Site: left antecubital; bp 15:56 Follow up: Response: Pain is decreased bp Outcome: 15:32 Discharge ordered by . ps1 15:49 Discharged to home ambulatory. 15:49 Condition: stable 15:49 Discharge instructions given to patient, Instructed on discharge instructions, follow up and referral plans. Demonstrated understanding of instructions, follow-up care. 15:56 Patient left the ED. bp Signatures: Dispatcher [employer] Latasha Piedra Irene, RN RN iw Karina Giang RN RN Gallito Mckeon RN RN bp Johnathan Liu MD MD ps1
--- NOTE | 2019-10-19 15:33 | EDPHYS ---
Physician Documentation [facility] Name: Chip Maria Age: 49 yrs Sex: Male : 1970 Arrival Date: 10/19/2019 Time: 11:23 Bed 4 Private MD: ED Physician Johnathan Liu HPI: 10/18 15:32 This 49 yrs old Male presents to ER via Ambulatory with complaints of Flank ps1 Pain, Dizziness. 15:32 The patient complains of pain in the mid back area and left low back. Onset: The ps1 symptoms/episode began/occurred 2 week(s) ago. Modifying factors: the symptoms are aggravated by movement. Severity of pain: At its worst the pain was moderate. Patient states that he has not had stones before. No trauma. Frequency. Had some episodes of lightheadedness associated with pain. . Historical: - Allergies: 11:42 No Known Allergies; iw - Home Meds: 11:42 None [Active]; iw - PMHx: 11:42 Diabetes - NIDDM; iw - PSHx: 11:42 None; iw - Immunization history:: Adult Immunizations up to date. - Social history:: Smoking status: Patient denies any tobacco usage or history of. ROS: 15:32 Constitutional: Negative for fever, chills, and weight loss, Eyes: Negative for injury, ps1 pain, redness, and discharge, Cardiovascular: Negative for chest pain, palpitations, and edema, Respiratory: Negative for shortness of breath, cough, wheezing, and pleuritic chest pain, Abdomen/GI: Negative for abdominal pain, nausea, vomiting, diarrhea, and constipation, MS/Extremity: Negative for injury and deformity. 15:32 : Positive for flank pain, urinary frequency. Exam: 15:32 Constitutional: This is a well developed, well nourished patient who is awake, alert, ps1 and in no acute distress. Head/Face: Normocephalic, atraumatic. Eyes: Pupils equal round and reactive to light, extra-ocular motions intact. Lids and lashes normal. Conjunctiva and sclera are non-icteric and not injected. Cardiovascular: Regular rate and rhythm. No gallops, murmurs, or rubs. Normal PMI, no JVD. No pulse deficits. Respiratory: Lungs have equal breath sounds bilaterally, clear to auscultation and percussion. No rales, rhonchi or wheezes noted. No increased work of breathing, no retractions or nasal flaring. Abdomen/GI: Soft, non-tender, with normal bowel sounds. No distension or tympany. No guarding or rebound. No evidence of tenderness throughout. MS/ Extremity: Pulses equal, no cyanosis. Neurovascular intact. Full, normal range of motion. Neuro: Awake and alert, GCS 15, oriented to person, place, time, and situation. Cranial nerves II-XII grossly intact. Sensory grossly intact. Vital Signs: 11:40 BP 133 / 81; Pulse 79; Resp 16; Pulse Ox 97% on R/A; Weight 87.09 kg; Height 5 ft. 5 iw in. (165.10 cm); Pain 10/10; 14:00 BP 120 / 88; Pulse 58; Resp 16; Pulse Ox 97% ; bp 15:26 BP 121 / 81; Pulse 57; Resp 16; Pulse Ox 97% ; bp 11:40 Body Mass Index 31.95 (87.09 kg, 165.10 cm) iw MDM: 13:08 Patient medically screened. ps1 15:32 Data reviewed: vital signs, nurses notes, lab test result(s), radiologic studies, and ps1 as a result, I will discharge patient. Counseling: I had a detailed discussion with the patient and/or guardian regarding: the historical points, exam findings, and any diagnostic results supporting the discharge/admit diagnosis, lab results, radiology results, the need for outpatient follow up, to return to the emergency department if symptoms worsen or persist or if there are any questions or concerns that arise at home. ED course: Normal renal fx. Microscopic stones, likely recent passed stone. No hydronephrosis. . 10/18 13:10 Order name: CBC with Diff; Complete Time: 15:38 ps1 10/18 13:10 Order name: CMP; Complete Time: 15:30 ps1 10/18 13:10 Order name: CT Abd/Pelvis - Without Contrast; Complete Time: 14:01 ps1 10/18 13:10 Order name: Urine Culture ps1 10/18 15:19 Order name: Urine Dipstick--Ancillary (enter results) em1 10/18 13:10 Order name: Urine Dipstick-Ancillary (obtain specimen); Complete Time: 15:17 ps1 Administered Medications: 13:51 Drug: TORadol - Ketorolac 15 mg Route: IVP; Site: left antecubital; bp 15:56 Follow up: Response: Pain is decreased bp Disposition: 10/19/19 15:32 Discharged to Home. Impression: Unspecified renal colic. - Condition is Stable. - Discharge Instructions: Renal Colic, [id number]. - Medication Reconciliation Form, Thank You Letter, Antibiotic Education, Prescription Opioid Use form. - Follow up: Private Physician; When: As needed; Reason: Further diagnostic work-up, Re-evaluation by your physician. Follow up: Emergency Department; When: As needed; Reason: Fever > 102 F, Trouble breathing, Worsening of condition. - Problem is new. - Symptoms have improved. Signatures: Dispatcher [employer] EDMS Mihaela Garcia RN RN iw Gallito Mckeon RN RN Johnathan Malcolm MD MD ps1 Corrections: (The following items were deleted from the chart) 15:56 15:32 10/19/2019 15:32 Discharged to Home. Impression: Unspecified renal colic. bp Condition is Stable. Forms are Medication Reconciliation Form, Thank You Letter, Antibiotic Education, Prescription Opioid Use. Follow up: Private Physician; When: As needed; Reason: Further diagnostic work-up, Re-evaluation by your physician. Follow up: Emergency Department; When: As needed; Reason: Fever > 102 F, Trouble breathing, Worsening of condition. Problem is new. Symptoms have improved. ps1
[2019-10-19 16:25] VITALS: O2SAT 97
[2019-10-19 16:28] VITALS: BP 121/81
[2019-10-19 19:26] LABS: Urine Blood NEGATIVE (NEG); Urine Glucose NEGATIVE (NEG); Urine Protein NEGATIVE (NEG); Urine Specific Gravity >1.030 (1.005-1.030); Urine pH 6.5 (5.0-7.0)
== END 2019-10-19 15:56 | disposition home or self-care (01) ==
LOC: ER 11:19
DX: N23 Unspecified renal colic (principal); E11.9 Type 2 diabetes mellitus without complications
CPT/HCPCS: 36415; 74176; 80053; 81003; 85025; 87086; 87088; 96374; 99284

== ENCOUNTER 2021-08-13 14:28 | Emergency (ER) | payer BC, OTHER ==
--- NOTE | 2021-08-13 16:48 | RAD REPORT ---
EXAM DESCRIPTION: Shoulder Right 2 View - 08/13/2021 3:58 pm CLINICAL HISTORY: shoulder pain COMPARISON: No comparisons TECHNIQUE: Internal and external rotation views of the right shoulder were obtained. FINDINGS: There is no fracture or dislocation. AC joint is normal in appearance. No acute or suspic ious findings. IMPRESSION: Negative two-view right shoulder examination.
--- NOTE | 2021-08-13 16:49 | RAD REPORT ---
EXAM DESCRIPTION: RAD - Elbow Right 3 View - 08/13/2021 3:58 pm CLINICAL HISTORY: elbow pain COMPARISON: No comparisons FINDINGS: There were five views of the right elbow were obtained. Positioning was not optimal. No fracture is identified and no elevated posterior fat pad. There is no dislocation or periosteal re action noted. No foreign body or other soft tissue abnormality. Minimal spurring is seen at the joan ps attachment to the olecranon IMPRESSION: Negative right elbow examination for acute finding.
--- NOTE | 2021-08-13 17:14 | ER ---
Nurse's Notes [facility] Name: Chip Maria Age: 51 yrs Sex: Male : 1970 Arrival Date: 08/13/2021 Time: 14:31 Bed 14 Private MD: Diagnosis: Right Shoulder Bursitis;Right Olecranon Bursitis Presentation: 08/13 14:53 Chief complaint: Patient states: Right arm pain x 4 months, from shoulder to elbow; vg1 states has seen PCP for this but 'nothing has been done and he said he thinks its arthritis'. Coronavirus screen: Vaccine status: Patient reports receiving the 2nd dose of the covid vaccine. Client denies travel out of the [place] in the last 14 days. Ebola Screen: Patient denies exposure to infectious person. Patient denies travel to an Ebola-affected area in the 21 days before illness onset. Initial Sepsis Screen: Does the patient meet any 2 criteria? No. Patient's initial sepsis screen is negative. Does the patient have a suspected source of infection? No. Patient's initial sepsis screen is negative. Risk Assessment: Do you want to hurt yourself or someone else? Patient reports no desire to harm self or others. Onset of symptoms was April 2021. 14:53 Method Of Arrival: Ambulatory vg1 14:53 Acuity: GIOVANI 3 vg1 Triage Assessment: 14:54 General: Appears in no apparent distress. uncomfortable, Behavior is calm, cooperative. vg1 Pain: Complains of pain in right arm Pain currently is 10 out of 10 on a pain scale. Musculoskeletal: Circulation, motion, and sensation intact. Historical: - Allergies: 14:54 NKDA; vg1 - PMHx: 14:54 Diabetes - NIDDM; Hypertensive disorder; vg1 - Immunization history:: Client reports receiving the 2nd dose of the Covid vaccine. - Social history:: Smoking status: Patient denies any tobacco usage or history of. Screenin:34 Abuse screen: Denies threats or abuse. Denies injuries from another. Nutritional ld1 screening: No deficits noted. Tuberculosis screening: No symptoms or risk factors identified. Fall Risk None identified. Assessment: 16:34 General: Appears in no apparent distress. comfortable, Behavior is calm, cooperative, ld1 appropriate for age. Pain: Complains of pain in right arm Pain does not radiate. Pain currently is 7 out of 10 on a pain scale. Quality of pain is described as throbbing, Pain began gradually. Neuro: Level of Consciousness is awake, alert, obeys commands, Oriented to person, place, time, situation. Cardiovascular: Capillary refill < 3 seconds Patient's skin is warm and dry. Rhythm is regular. Respiratory: Airway is patent Respiratory effort is even, unlabored. GI: Abdomen is flat, non-distended. : No signs and/or symptoms were reported regarding the genitourinary system. EENT: No signs and/or symptoms were reported regarding the EENT system. Derm: No signs and/or symptoms reported regarding the dermatologic system. Musculoskeletal: Reports pain in right arm. Vital Signs: 14:53 BP 110 / 81; Pulse 73; Resp 16; Temp 97.9(TE); Pulse Ox 98% on R/A; Weight 74.84 kg; vg1 Height 5 ft. 5 in. (165.10 cm); Pain 10/10; 14:53 Body Mass Index 27.46 (74.84 kg, 165.10 cm) vg1 ED Course: 14:31 Patient arrived in ED. mr 14:41 Sudeep Rodríguez PA is PHCP. [facility] 14:41 Mikey Cervantes MD is Attending Physician. [facility] 14:54 Triage completed. vg1 14:54 Arm band placed on. vg1 16:00 Shoulder Right (2 View) XRAY In Process Unspecified. EDMS 16:00 Elbow Right 3 View XRAY In Process Unspecified. EDMS 16:34 Martita Virk, RN is Primary Nurse. ld1 16:34 Patient has correct armband on for positive identification. Placed in gown. Bed in low ld1 position. Call light in reach. Side rails up X2. hospital monitor on. Pulse ox on. NIBP on. Door closed. Noise minimized. Warm blanket given. 16:34 No provider procedures requiring assistance completed. ld1 17:12 Fitz Gooden MD is Referral Physician. [facility] 17:33 Patient did not have IV access during this emergency room visit. ld1 Administered Medications: No medications were administered Outcome: 17:13 Discharge ordered by . [facility] 17:33 Discharged to home ambulatory. ld1 17:33 Condition: stable 17:33 Discharge instructions given to patient, Instructed on discharge instructions, follow up and referral plans. medication usage, Demonstrated understanding of instructions, follow-up care, medications, Prescriptions given X 2. 17:34 Patient left the ED. ld1 Signatures: Dispatcher [employer] EDMS Sudeep Rodríguez PA PA jmm Rivera, Mary mr Nadine Maria, RN RN vg1 Martita Virk RN RN ld1
--- NOTE | 2021-08-13 17:14 | EDPHYS ---
Physician Documentation [facility] Name: Chip Maria Age: 51 yrs Sex: Male : 1970 Arrival Date: 08/13/2021 Time: 14:31 Bed 14 Private MD: ED Physician Mikey Cervantes HPI: 08/13 15:13 This 51 yrs old Male presents to ER via Ambulatory with complaints of Arm Pain.jmm 15:13 The patient or guardian complains of pain. Onset: The symptoms/episode began/occurred jmm gradually, 4 month(s) ago. Modifying factors: The symptoms are alleviated by nothing. the symptoms are aggravated by movement. This is a 51 year old male with a history of dm, htn that presents to the ED with complaints of right shoudler pain and right elbow pain which has been ongoing for months. Denies neck pain. Denies known injury. Denies fever. . Historical: - Allergies: 14:54 NKDA; vg1 - PMHx: 14:54 Diabetes - NIDDM; Hypertensive disorder; vg1 - Immunization history:: Client reports receiving the 2nd dose of the Covid vaccine. - Social history:: Smoking status: Patient denies any tobacco usage or history of. ROS: 15:13 Constitutional: Negative for fever, chills, and weight loss, Cardiovascular: Negative jmm for chest pain, palpitations, and edema, Respiratory: Negative for shortness of breath, cough, wheezing, and pleuritic chest pain. 15:13 MS/extremity: Positive for pain. 15:13 All other systems are negative. Exam: 15:13 Constitutional: This is a well developed, well nourished patient who is awake, alert, jmm and in no acute distress. Head/Face: atraumatic. Eyes: EOMI, no conjunctival erythema appreciated ENT: Moist Mucus Membranes Neck: Trachea midline, Supple Chest/axilla: Normal chest wall appearance and motion. Cardiovascular: Regular rate and rhythm. No edema appreciated Respiratory: Normal respirations, no respiratory distress appreciated Abdomen/GI: Non distended, soft Back: Normal ROM Skin: General appearance color normal 15:13 Neuro: Awake and alert Psych: Behavior is normal, Mood is normal, Patient is cooperative and pleasant 15:13 Musculoskeletal/extremity: right anterior shoulder mildly ttp, compartments are soft, right elbow pain, full cryptographic clerk strength, FROM appreciated, NVI. Vital Signs: 14:53 BP 110 / 81; Pulse 73; Resp 16; Temp 97.9(TE); Pulse Ox 98% on R/A; Weight 74.84 kg; vg1 Height 5 ft. 5 in. (165.10 cm); Pain 10/10; 14:53 Body Mass Index 27.46 (74.84 kg, 165.10 cm) vg1 MDM: 14:58 Patient medically screened. [facility] 15:15 Data reviewed: vital signs, nurses notes. [facility] 16:50 Counseling: I had a detailed discussion with the patient and/or guardian regarding: the [facility] historical points, exam findings, and any diagnostic results supporting the discharge/admit diagnosis, radiology results, the need for outpatient follow up, to return to the emergency department if symptoms worsen or persist or if there are any questions or concerns that arise at home. ED course: Xrays are negative. Patient advised to follow up with pcp and otherwise given strict return precautions. Patient understood and agrees with the plan of care. . 08/13 14:59 Order name: Shoulder Right (2 View) XRAY; Complete Time: 16:[address] [facility] 08/13 14:59 Order name: Elbow Right 3 View XRAY; Complete Time: 16:[address] [facility] Administered Medications: No medications were administered Disposition: 18:50 Co-signature as Attending Physician, Mikey Cervantes MD. rn Disposition Summary: 08/13/21 17:13 Discharge Ordered Location: Home [facility] Condition: Stable [facility] Diagnosis - Right Shoulder Bursitis [facility] - Right Olecranon Bursitis [facility] Followup: [facility] - With: Fitz Gooden MD - When: 2 - 3 days - Reason: Recheck today's complaints, Continuance of care, Re-evaluation by your physician Discharge Instructions: - Discharge Summary Sheet [facility] - Bursitis [facility] Forms: - Medication Reconciliation Form [facility] - Thank You Letter [facility] - Antibiotic Education [facility] - Prescription Opioid Use [facility] Prescriptions: - Diclofenac Sodium 75 mg Oral Tablet Sustained Release - take 1 tablet by ORAL route 2 times per day; 30 tablet; Refills: 0, Product [facility] Selection Permitted - orphenadrine citrate 100 mg Oral Tablet Sustained Release - take 1 tablet by ORAL route 2 times per day As needed; 20 tablet; Refills: 0, sabrina Product Selection Permitted Signatures: Dispatcher [employer] Sudeep Carnes PA PA jmm Nieto, Roman, MD MD rn Nadine Maria RN RN vg1
[2021-08-13 18:29] VITALS: BP 110/81; TEMP 97.9; O2SAT 98
== END 2021-08-13 17:34 | disposition home or self-care (01) ==
LOC: ER 14:28
DX: M70.21 Olecranon bursitis, right elbow (principal); E11.9 Type 2 diabetes mellitus without complications; I10 Essential (primary) hypertension
CPT/HCPCS: 99284

== ENCOUNTER 2024-06-29 19:52 | Emergency (ER) | payer BC, OTHER ==
[2024-06-29] MEDS ORDERED: ASPIRIN 81 MG CHEWABLE TABLET ONE (21:05)
[2024-06-29 21:24] LABS: Absolute Eosinophils 0.1 K/uL (0-0.5); Absolute Lymphocytes (CBC) 2.1 K/uL (0.7-4.9); Absolute Monocytes 0.5 K/uL (0.1-1.3); Absolute Neutrophil 4.3 K/uL (1.8-8.0); Basophils % 0.5 % (0-1.3); Hematocrit 42.1 % (39.6-49.0); Hemoglobin 14.6 g/dL (13.6-17.9); Lymphocytes % 30.3 % (15.3-44.8); MCH 31.3 pg (27.0-35.0); MCHC 34.7 g/dL (32.0-36.0); MCV 90.1 fL (80-100); Monocytes % 7.6 % (3.3-12.3); Neutrophils % 60.6 % (41.7-73.7); Nucleated Red Blood Cells % 0.1 % (0-0); Platelets 185 thou/uL (152-406); RBC Red Blood Cell Count 4.67 M/uL (4.33-5.43)
[2024-06-29 21:36] LABS: ALT/SGPT 32 U/L (16-61); AST/SGOT 20 U/L (15-37); Albumin 3.8 g/dL (3.4-5.0); Albumin/Globulin Ratio 0.9 (1.1-1.8); Alkaline Phosphatase 106 U/L (45-117); Anion Gap 6.8 mEq/L (5.0-15.0); BUN Blood Urea Nitrogen 10 mg/dL (7-18); Bicarbonate 28 mEq/L (21-32); Bilirubin Total 0.3 mg/dL (0.2-1.0); Globulin 4.1 g/dL (2.3-3.5); Glomerular Filtration Rate 89 ml/min (=/>90); Glucose Level 110 mg/dL (74-106); Magnesium 2.3 mg/dL (1.6-2.4); NT PRO-BNP 11 pg/mL (<125); Potassium 3.8 mEq/L (3.5-5.1); Protein, Total 7.9 g/dL (6.4-8.2); Sodium Level 138 mEq/L (136-145)
[2024-06-29 21:38] LABS: Bilirubin Direct < 0.2 mg/dL (0-0.2); Bilirubin Indirect, Calculated 0.1 mg/dL (0.2-0.8); Troponin High Sensitivity < 3.0 pg/mL (<58.9)
--- NOTE | 2024-06-29 21:53 | RAD REPORT ---
EXAMINATION: ONE VIEW CHEST XR CLINICAL INDICATION: CHEST PAIN TECHNIQUE: Frontal chest projection is submitted. Examination is limited by patient positioning and t echnique. COMPARISON: 09/23/2019 FINDINGS: The lungs are well inflated and clear. The heart is upper limit of normal in size. No displaced fract ures identified. IMPRESSION: No acute intrathoracic abnormalities.
[2024-06-29] MEDS ORDERED: NA CHLORIDE 0.9% 1,000 ML ONE (22:12)
[2024-06-29 22:44] LABS: PT Prothrombin Time 11.5 SECONDS (10-13.0); Protime INR 1.01
--- NOTE | 2024-06-30 00:12 | ER ---
Nurse's Notes [facility] Name: Chip Maria Age: 54 yrs Sex: Male : 1970 Arrival Date: 06/29/2024 Time: 19:52 Bed 23 Private MD: Diagnosis: Essential (primary) hypertension;Chest pain, unspecified Presentation: 06/29 20:17 Chief complaint: Patient states: went to [facility], was getting headaches vc1 and checked blood pressure and it was high. They told me they couldn't do anything for you. Coronavirus screen: Client denies travel out of the [place] in the last 14 days. At this time, the client does not indicate any symptoms associated with coronavirus-19. Ebola Screen: Patient negative for fever greater than or equal to 101.5 degrees Fahrenheit, and additional compatible Ebola Virus Disease symptoms Patient denies exposure to infectious person. Patient denies travel to an Ebola-affected area in the 21 days before illness onset. No symptoms or risks identified at this time. Initial Sepsis Screen: Does the patient meet any 2 criteria? No. Patient's initial sepsis screen is negative. Does the patient have a suspected source of infection? No. Patient's initial sepsis screen is negative. Risk Assessment: Do you want to hurt yourself or someone else? Patient reports no desire to harm self or others. Onset of symptoms was June 29, 2024. 20:17 Method Of Arrival: Ambulatory vc1 20:17 Acuity: GIOVANI 3 vc1 20:20 Note pt now states he also went to urgent care and they told him to come here vc1 because his heart rate was in the 130's. Pt now states he is having chest pain. Care prior to arrival: None. Historical: - Allergies: 20:21 NKDA; vc1 - PMHx: 20:21 Diabetes - NIDDM; Hypertensive disorder; right sided paralysis; vc1 - PSHx: 20:21 None; vc1 - Immunization history:: Adult Immunizations unknown. - Infectious Disease History:: Denies. - Social history:: Smoking status: Patient denies any tobacco usage or history of. Screenin:39 [facility] ED Fall Risk Assessment (Adult) History of falling in the last 3 months, me1 including since admission No falls in past 3 months (0 pts) Confusion or Disorientation No (0 pts) Intoxicated or Sedated No (0 pts) Impaired Gait No (0 pts) Mobility Assist Device Used No (0 pt) Altered Elimination No (0 pt) Score/Fall Risk Level 0 - 2 = Low Risk Maintained a safe environment, Provided non-skid footwear, Hourly rounding (assess needs \T\ fall precautionary measures) done. Abuse screen: Denies threats or abuse. Nutritional screening: No deficits noted. Tuberculosis screening: No symptoms or risk factors identified. Assessment: 20:39 General: Appears in no apparent distress. Behavior is calm, cooperative, appropriate me1 for age, Reports went to [facility], was getting headaches and checked blood pressure and it was high. They told me they couldn't do anything for you. Pain: Complains of pain in head and chest Pain does not radiate. Pain currently is 8 out of 10 on a pain scale. Quality of pain is described as sharp, Pain began gradually, Is continuous. Neuro: Level of Consciousness is awake, alert, obeys commands, Oriented to person, place, time, situation, Appropriate for age. Neuro: Reports headache. Cardiovascular: Patient's skin is warm and dry. Cardiovascular: Reports chest pain. Respiratory: Airway is patent Respiratory effort is even, unlabored, Respiratory pattern is regular, symmetrical. GI: No signs and/or symptoms were reported involving the gastrointestinal system. : No signs and/or symptoms were reported regarding the genitourinary system. EENT: No signs and/or symptoms were reported regarding the EENT system. Derm: Skin is intact, is healthy with good turgor, Skin is pink, warm \T\ dry. Musculoskeletal: No signs and/or symptoms reported regarding the musculoskeletal system. Vital Signs: 20:17 BP 149 / 96; Pulse 106; Resp 18; Temp 97.6; Pulse Ox 97% ; Weight 86.18 kg; Height 5 vc1 ft. 5 in. ; Pain 5/10; 21:00 BP 135 / 91; Pulse 97; Resp 13; Pulse Ox 95% ; me1 22:00 BP 138 / 89; Pulse 83; Resp 14; Pulse Ox 96% ; me1 23:00 BP 147 / 93; Pulse 81; Resp 14; Pulse Ox 98% ; me1 23:00 BP 137 / 88; Pulse 84; Resp 12; Pulse Ox 98% ; me1 06/30 00:37 BP 131 / 92; Pulse 85; Resp 18; Pulse Ox 98% ; cp4 06/29 20:17 Body Mass Index 31.62 (86.18 kg, 165.1 cm) vc1 06/29 20:17 Pain Scale: Adult vc1 ED Course: 06/29 19:55 Patient arrived in ED. jj6 20:20 Triage completed. vc1 20:21 Arm band placed on left wrist. vc1 20:24 Michelle Dodson, RADHA is Primary Nurse. me1 20:38 EKG done, by ED staff, reviewed by Rosalina Ardon PA-C. me1 20:39 Patient has correct armband on for positive identification. Bed in low position. Call [facility] light in reach. Side rails up X 1. Provided Education on: POC. Verbalized understanding.. Client placed on continuous cardiac and pulse oximetry monitoring. NIBP monitoring applied. panel monitor on. Pulse ox on. NIBP on. 20:39 No provider procedures requiring assistance completed. me1 20:51 Rosalina Ardon PA-C is PHCP. sb4 20:51 Todd Rachel MD is Attending Physician. sb4 21:06 Troponin HS Sent. me1 21:06 PT-INR Sent. me1 21:06 NT PRO-BNP Sent. me1 21:06 Magnesium Sent. me1 21:06 LFT's Sent. me1 21:06 CBC with Diff Sent. me1 21:06 Initial lab(s) drawn, by nc, sent to lab. Inserted saline lock: 22 gauge in left [facility] antecubital area, using aseptic technique. 21:29 XRAY Chest (1 view) In Process Unspecified. EDMS 06/30 00:36 intact, bleeding controlled, No redness/swelling at site. Pressure dressing applied. cp4 Administered Medications: 06/29 21:11 Drug: Aspirin PO Chewable Tablet 324 mg PO once; 81 mg tablets x 4 Route: PO; me1 22:14 Drug: NS 0.9% IV 1000 ml IV at 1000 ml once; to be given as a bolus over 60 minutes [facility] Route: IV; Rate: 1000 ml; Site: left antecubital; 23:16 Follow up: Response: No adverse reaction; IV Status: Completed infusion; IV Intake: nc1 1000ml 06/30 00:35 Drug: [place] PO 5 mg-325 mg 1 tabs PO once Route: PO; cp4 00:36 Follow up: Response: No adverse reaction cp4 Medication: 06/29 20:39 VIS not applicable for this client. me1 Intake: 23:16 IV: 1000ml; Total: 1000ml. me1 Outcome: 06/30 00:12 Discharge ordered by MD. sb4 00:36 Discharged to home ambulatory, cp4 00:36 Condition: stable 00:36 Discharge instructions given to patient, family, Instructed on discharge instructions, follow up and referral plans. medication usage, Demonstrated understanding of instructions, follow-up care, medications, Prescriptions given X 1, 00:37 Patient left the ED. cp4 Signatures: Dispatcher [employer] EDDacia [id number] Daina Reyes, RN RN vc1 Rosalina Ardon, PA-C PAPebbles sb4 Michelle Dodson RN RN me1 Pam Eckert cp4 Corrections: (The following items were deleted from the chart) 06/29 20:39 20:17 Chief complaint: Patient states: went to [facility], was getting me1 headaches and checked blood pressure and it was high. They told me they couldn't do anything for you. vc1 21:07 20:38 EKG done, by ED staff, me1 me1
--- NOTE | 2024-06-30 00:12 | EDPHYS ---
Physician Documentation [facility] Name: Chip Maria Age: 54 yrs Sex: Male : 1970 Arrival Date: 06/29/2024 Time: 19:52 Bed 23 Private MD: ED Physician Todd Rachel HPI: 06/29 23:57 This 54 yrs old Male presents to ER via Ambulatory with complaints of High sb4 Blood Pressure. 23:57 States blood pressure was elevated at home so he went to be evaluated at urgent care. sb4 His blood pressure was normal but his heart rate was elevated so they sent him to the ED for further evaluation. Patient states that his symptoms have resolved. He denies any chest pain, shortness of breath. Denies any states he only takes medication for "weight loss "but is not sure what it is. Historical: - Allergies: 20:21 NKDA; vc1 - PMHx: 20:21 Diabetes - NIDDM; Hypertensive disorder; right sided paralysis; vc1 - PSHx: 20:21 None; vc1 - Immunization history:: Adult Immunizations unknown. - Infectious Disease History:: Denies. - Social history:: Smoking status: Patient denies any tobacco usage or history of. ROS: 23:57 Constitutional: Negative for fever, chills, and weight loss, sb4 23:57 All other systems are negative, Exam: 23:57 Constitutional: This is a well developed, well nourished patient who is awake, alert, sb4 and in no acute distress. Head/Face: Normocephalic, atraumatic. Eyes: Extra-ocular motions intact. Periorbital areas with no swelling, redness, or edema. ENT: Mucous membranes moist. Cardiovascular: Regular rate and rhythm with a normal S1 and S2. Respiratory: No increased work of breathing, no retractions or nasal flaring. Abdomen/GI: Soft, non-tender, no distension. Skin: Warm, dry with normal turgor. Normal color with no rashes, no lesions, and no evidence of cellulitis. Vital Signs: 20:17 BP 149 / 96; Pulse 106; Resp 18; Temp 97.6; Pulse Ox 97% ; Weight 86.18 kg; Height 5 vc1 ft. 5 in. ; Pain 5/10; 21:00 BP 135 / 91; Pulse 97; Resp 13; Pulse Ox 95% ; me1 22:00 BP 138 / 89; Pulse 83; Resp 14; Pulse Ox 96% ; me1 23:00 BP 147 / 93; Pulse 81; Resp 14; Pulse Ox 98% ; me1 23:00 BP 137 / 88; Pulse 84; Resp 12; Pulse Ox 98% ; me1 06/30 00:37 BP 131 / 92; Pulse 85; Resp 18; Pulse Ox 98% ; cp4 06/29 20:17 Body Mass Index 31.62 (86.18 kg, 165.1 cm) vc1 06/29 20:17 Pain Scale: Adult vc1 MDM: 06/29 20:51 Medical Screening Exam initiated sb4 06/30 00:06 Data reviewed: vital signs, nurses notes, lab test result(s), EKG, radiologic studies, sb4 and as a result, I will discharge patient. Consideration of Admission/Observation Escalation of care including admission/observation considered. Counseling: I had a detailed discussion with the patient and/or guardian regarding the historical points, exam findings, and any diagnostic results supporting the discharge/admit diagnosis, the presence of at least one elevated blood pressure reading (>120/80) during this emergency department visit, lab results, radiology results, the need for outpatient follow up, for definitive care, to return to the emergency department if symptoms worsen or persist or if there are any questions or concerns that arise at home. 06/29 20:56 Order name: Basic Metabolic Panel; Complete Time: 21:40 4 06/29 20:56 Order name: CBC with Diff; Complete Time: 21:54 sb4 06/29 20:56 Order name: LFT's; Complete Time: 21:40 sb4 06/29 20:56 Order name: Magnesium; Complete Time: 21:40 sb4 06/29 20:56 Order name: NT PRO-BNP; Complete Time: 21:40 sb4 06/29 20:56 Order name: PT-INR; Complete Time: 22:44 sb4 06/29 20:56 Order name: Troponin HS; Complete Time: 21:40 sb4 06/29 23:01 Order name: Troponin High Sensitivity; Complete Time: 00:11 sb4 06/29 20:56 Order name: XRAY Chest (1 view); Complete Time: 21:54 sb4 06/29 20:56 Order name: EKG; Complete Time: 20:56 sb4 06/29 20:56 Order name: Cardiac monitoring; Complete Time: 21: sb4 06/29 20:56 Order name: EKG - Nurse/Tech; Complete Time: 21: sb4 06/29 20:56 Order name: IV Saline Lock; Complete Time: 21: sb4 06/29 20:56 Order name: Labs collected and sent; Complete Time: : sb4 06/29 20:56 Order name: O2 Per Protocol; Complete Time: 21: sb4 06/29 20:56 Order name: O2 Sat Monitoring; Complete Time: 21: sb4 06/29 21:24 Order name: Misc. Order: lab redraw blue top needs to be full; Complete Time: 22:11 sp EC/18 23:00 Rate is 94 beats/min. Rhythm is regular, Normal Sinus Rhythm. NM interval is normal at sb4 152 msec. QRS interval is normal at 96 msec. QT interval is normal at 330 msec. No Q waves. T waves are Normal. No ST changes noted. Clinical impression: No evidence of ischemia. Interpreted by me. Reviewed by me. Administered Medications: 21:11 Drug: Aspirin PO Chewable Tablet 324 mg PO once; 81 mg tablets x 4 Route: PO; me1 22:14 Drug: NS 0.9% IV 1000 ml IV at 1000 ml once; to be given as a bolus over 60 minutes me1 Route: IV; Rate: 1000 ml; Site: left antecubital; 23:16 Follow up: Response: No adverse reaction; IV Status: Completed infusion; IV Intake: me1 1000ml 06/30 00:35 Drug: [place] PO 5 mg-325 mg 1 tabs PO once Route: PO; cp4 00:36 Follow up: Response: No adverse reaction cp4 Disposition: :19 Co-signature as Attending Physician, Todd Rachel MD I agree with the assessment sp4 and plan of care. I reviewed the patient's care provided by the Advanced Practice Provider and agree with the diagnosis and treatment plan. Disposition Summary: 06/30/24 00:12 Discharge Ordered Problem: new sb4 Symptoms: have improved sb4 Condition: Stable sb4 Diagnosis - Essential (primary) hypertension sb4 - Chest pain, unspecified sb4 Followup: sb4 - With: Emergency Department - When: As needed - Reason: Trouble breathing, Worsening of condition Discharge Instructions: - Discharge Summary Sheet sb4 - Hypertension, Adult sb4 - Nonspecific Chest Pain, Adult, [id number] sb4 Forms: - Patient Portal Instructions sb4 - Leadership Thank You Letter sb4 Prescriptions: - Ibuprofen 800 mg Oral Tablet - take 1 tablet ORAL route every 8 hours As needed take with food; 30 tablet; sb4 Refills: 0, Product Selection Permitted Signatures: Dispatcher [employer] EDMS Noemí Adams Vanessa, RN RN vc1 Rosalina Ardon PAKathyC PAKathyC sb4 Todd Rachel MD MD sp4 Michelle Dodson RN RN me1 Pam Eckert cp4 Corrections: (The following items were deleted from the chart) 06/29 20:56 20:56 Chest Single View+[email or web address].[email or web address] ordered. EDMS EDMS 23:01 22:01 Misc. Order ordered. sb4 sb4
[2024-06-30] MEDS ORDERED: HYDROCODONE/APAP 5/325 MG TAB ONE (00:22)
[2024-06-30 08:27] VITALS: TEMP 97.6
[2024-06-30 08:44] VITALS: O2SAT 98
[2024-06-30 08:45] VITALS: BP 131/92
--- NOTE | 2024-06-30 12:27 | EKG ---
Test Date: 2024-06-29 Test Time: 20:33:12 [employer] Operator: MEASUREMENT RESULTS: Intervals: Rate: 94 DE: 152 QRSD: 96 QT: 330 QTc: 412 Odd: P: 49 DE: 152 QRS: 8 T: 61 INTERPRETIVE STATEMENTS: Normal sinus rhythm Possible Left atrial enlargement Borderline ECG Compared to ECG 09/23/2019 21:52:21 No significant changes Electronically Signed On 06-30-24 12:25:10 CDT by Zeeshan Mcgovern
== END 2024-06-30 00:37 | disposition home or self-care (01) ==
LOC: ER 19:52
DX: I10 Essential (primary) hypertension (principal); R07.9 Chest pain, unspecified; E11.9 Type 2 diabetes mellitus without complications
CPT/HCPCS: 93005; 85025; 80048; 36415; 83735; 85610; 80076; 84484 ×2; 83880; 71045; 96360; 99285; J7030